=== PATIENT | female | born 1985 | race Two or more races ===

== ENCOUNTER 2021-04-28 16:59 | Inpatient (IN) | payer OTHER ==
[~2021-04-28] VITALS: Ht 165.1 cm; Wt 60.5 kg
[2021-04-28] MEDS ORDERED: ADDE20TA PO (18:45)
[2021-04-28] MEDS ORDERED: cefTRIAXone SOD 2 GM in D5W MINI-BAG PLUS 50 ML IV ONE (18:45)
[2021-04-28] MEDS ORDERED: SERT50TA29 PO (18:45)
[2021-04-28] MEDS ORDERED: HOME MED LIST COMPLETE! XX SCH (18:50)
[2021-04-28 20:04] LABS: BASO % 0.7 % (0.0-1.0); EOS % 0.7 % (0.0-3.0); HEMATOCRIT 32.2 % (36.0-47.0); HEMOGLOBIN 10.7 g/dl (12.0-15.5); LYMPH % 22.5 % (24.0-44.0); MEAN CORPUSCULAR HEMOGLOBIN 29.5 pg (27.0-33.0); MEAN CORPUSCULAR HGB CONC 33.2 g/dl (32.0-36.5); MEAN CORPUSCULAR VOLUME 88.7 fl (80.0-96.0); MONO # 0.4 10^3/uL (0.0-0.8); MONO % 9.7 % (2.0-8.0); NEUTROPHILS % 66.2 % (36.0-66.0); PLATELET COUNT, AUTOMATED 451 10^3/uL (150-450); RED BLOOD COUNT 3.63 10^6/uL (4.00-5.40); WHITE BLOOD COUNT 4.5 10^3/uL (4.0-10.0)
[2021-04-28 20:16] LABS: INR 0.98; PROTHROMBIN TIME 13.4 SECONDS (12.7-14.5)
[2021-04-28 20:40] LABS: ALBUMIN 2.5 GM/DL (3.2-5.2); ALT/SGPT 52 U/L (12-78); BILIRUBIN,DIRECT 0.1 MG/DL (0.0-0.2); BILIRUBIN,TOTAL 0.1 MG/DL (0.2-1.0); BLOOD UREA NITROGEN 17 MG/DL (7-18); CALCIUM LEVEL 8.3 MG/DL (8.5-10.1); CARBON DIOXIDE LEVEL 25 MEQ/L (21-32); CHLORIDE LEVEL 107 MEQ/L (98-107); CREATININE FOR GFR 0.47 MG/DL (0.55-1.30); GLOMERULAR FILTRATION RATE > 60.0 (>60); GLUCOSE, FASTING 88 MG/DL (70-100); POTASSIUM SERUM 4.2 MEQ/L (3.5-5.1); SODIUM LEVEL 139 MEQ/L (136-145)
[2021-04-28] MEDS ORDERED: ACETAMINOPHEN TAB 650MG DOSE (2X325MG) PO PRN (21:10)
[2021-04-28] MEDS ORDERED: MOM 30ML SUSPENSION UDC PO PRN (21:10)
[2021-04-28] MEDS ORDERED: MAALOX 30 ML SUSP *UDC PO PRN (21:10)
[2021-04-28] MEDS: SERTRALINE HCL 25 MG TABLET PO SCH (21:47)
[2021-04-29] VITALS (24 sets, daily range): BP systolic 67–97; BP diastolic 41–62
[2021-04-29 05:12] LABS: BASO % 0.9 % (0.0-1.0); EOS # 0.1 10^3/uL (0.0-0.5); EOS % 1.2 % (0.0-3.0); HEMATOCRIT 33.5 % (36.0-47.0); HEMOGLOBIN 10.9 g/dl (12.0-15.5); LYMPH # 0.8 10^3/uL (1.5-5.0); LYMPH % 18.5 % (24.0-44.0); MEAN CORPUSCULAR HEMOGLOBIN 29.1 pg (27.0-33.0); MEAN CORPUSCULAR HGB CONC 32.5 g/dl (32.0-36.5); MEAN CORPUSCULAR VOLUME 89.6 fl (80.0-96.0); MONO # 0.5 10^3/uL (0.0-0.8); MONO % 12.4 % (2.0-8.0); NEUTROPHILS # 2.9 10^3/uL (1.5-8.5); NEUTROPHILS % 66.8 % (36.0-66.0); PLATELET COUNT, AUTOMATED 473 10^3/uL (150-450); RED BLOOD COUNT 3.74 10^6/uL (4.00-5.40); WHITE BLOOD COUNT 4.3 10^3/uL (4.0-10.0)
[2021-04-29 05:34] LABS: ALBUMIN 2.4 GM/DL (3.2-5.2); ALT/SGPT 46 U/L (12-78); BILIRUBIN,TOTAL 0.1 MG/DL (0.2-1.0); BLOOD UREA NITROGEN 11 MG/DL (7-18); CALCIUM LEVEL 8.4 MG/DL (8.5-10.1); CARBON DIOXIDE LEVEL 29 MEQ/L (21-32); CHLORIDE LEVEL 108 MEQ/L (98-107); CREATININE FOR GFR 0.53 MG/DL (0.55-1.30); GLOMERULAR FILTRATION RATE > 60.0 (>60); GLUCOSE, FASTING 98 MG/DL (70-100); MAGNESIUM LEVEL 2.1 MG/DL (1.8-2.4); POTASSIUM SERUM 4.5 MEQ/L (3.5-5.1); SODIUM LEVEL 142 MEQ/L (136-145); TOTAL PROTEIN 5.8 GM/DL (6.4-8.2)
[2021-04-29] MEDS ORDERED: LIDOCAINE 1% MDV 20ML VIAL As Ordered ONE (09:55)
[2021-04-29 11:32] LABS: PH BODY FLUID 7.607 UNITS (NOT ESTABLISHED); SOURCE, BODY FLUID pH PLEURAL
[2021-04-29 11:39] LABS: LDH LACTATE DEHYDROGENASE 231 U/L (84-246); NT-PRO BNP 115 PG/ML (<125)
[2021-04-29 11:43] LABS: APPEARANCE, BODY FLUID HAZY (CLEAR); PLEURAL FL COLOR YELLOW (COLORLESS); SOURCE, BODY FLUID PLEURAL
[2021-04-29] MEDS: NS 1,000 ML IV SCH ×2 (12:11→22:00)
[2021-04-29] MEDS: HEPARIN SOD (PORCINE) 5000UNITS/ML 1ML VIAL/SYRINGE SQ SCH ×2 (12:11→20:05)
[2021-04-29 12:31] LABS: LDH, BODY FLUID 289 U/L (NOT ESTABLISHED); SOURCE, BODY FLUID ALBUMIN PLEURAL; SOURCE, BODY FLUID GLUCOSE PLEURAL; SOURCE, BODY FLUID LDH PLEURAL; SOURCE, BODY FLUID TOT PROTEIN PLEURAL; TOTAL PROTEIN, BODY FLUID 3.7 G/DL (NOT ESTABLISHED)
[2021-04-29] MEDS ORDERED: ADDERALL 5 MG TAB PO ONE (16:00)
[2021-04-29] MEDS: SERTRALINE HCL 25 MG TABLET PO SCH (20:03)
[2021-04-30] VITALS: BP 95/58
[2021-04-30] MEDS: NS 1,000 ML IV SCH (00:11)
[2021-04-30 02:00] VITALS: BP 95/58
[2021-04-30 04:00] VITALS: BP 95/56
[2021-04-30 04:44] LABS: HEMATOCRIT 33.2 % (36.0-47.0); HEMOGLOBIN 10.8 g/dl (12.0-15.5); MEAN CORPUSCULAR HEMOGLOBIN 29.3 pg (27.0-33.0); MEAN CORPUSCULAR HGB CONC 32.5 g/dl (32.0-36.5); PLATELET COUNT, AUTOMATED 445 10^3/uL (150-450); RED BLOOD COUNT 3.69 10^6/uL (4.00-5.40); WHITE BLOOD COUNT 4.4 10^3/uL (4.0-10.0)
[2021-04-30 05:09] LABS: BLOOD UREA NITROGEN 14 MG/DL (7-18); CALCIUM LEVEL 8.3 MG/DL (8.5-10.1); CARBON DIOXIDE LEVEL 26 MEQ/L (21-32); CHLORIDE LEVEL 111 MEQ/L (98-107); CREATININE FOR GFR 0.45 MG/DL (0.55-1.30); GLOMERULAR FILTRATION RATE > 60.0 (>60); GLUCOSE, FASTING 98 MG/DL (70-100); POTASSIUM SERUM 4.2 MEQ/L (3.5-5.1); SODIUM LEVEL 142 MEQ/L (136-145)
== END 2021-04-30 08:36 | disposition home or self-care (01) | DRG 598 ==
LOC: M ED 16:59 → M ED INP 21:07 → M ICU 04-29 04:17
PROVIDERS: ADMIT Family Medicine; ATTEND Internal Medicine
PROC: 0W993ZZ Drainage of Right Pleural Cavity, Percutaneous Approach (ICD-10-PCS; principal; 2021-04-29)
DX: C50.911 Malignant neoplasm of unspecified site of right female breast (principal); J91.0 Malignant pleural effusion; C78.7 Secondary malignant neoplasm of liver and intrahepatic bile duct; Z90.13 Acquired absence of bilateral breasts and nipples; F32.A Depression, unspecified; Z79.899 Other long term (current) drug therapy; Z88.0 Allergy status to penicillin; Z92.3 Personal history of irradiation; Z92.21 Personal history of antineoplastic chemotherapy; Z80.3 Family history of malignant neoplasm of breast; Z86.16 Personal history of COVID-19

== ENCOUNTER → 2021-05-15 | Outpatient (CLI) | payer OTHER ==
[~2021-05-15] MED LIST: ACETAMINOPHEN 325 MG TAB As Ordered ONE; ACETAMINOPHEN TAB 650MG DOSE (2X325MG) PO ONE; ADDE20TA PO; IRON15CH PO; LIDOCAINE 1% MDV 20ML VIAL As Ordered ONE; MIDAZOLAM INJ 2MG/2ML VIAL (J2250 PER 1MG) As Ordered ONE; ONDANSETRON 4MG/2ML VIAL As Ordered ONE; SERT50TA29 PO; TAMO20TA8 PO; VANCOMYCIN 1000MG/20ML VIAL As Ordered ONE; diphenhydrAMINE 50MG/ML VIAL (J1200) As Ordered ONE; fentaNYL 100 MCG/2 ML INJECTION (J3010) As Ordered ONE
[2021-05-15] MEDS: NS 1,000 ML IV SCH (08:02)
[2021-05-15] MEDS: VANCOMYCIN HCL 1,000 MG, VIAL MATE ADAPTER 1 EACH in NS 250 ML IV ONE (08:02)
[2021-05-15 11:15] VITALS: BP 98/65
== END ==
LOC: M IRPRO 06:15
PROVIDERS: ATTEND Internal Medicine Hematology & Oncology
DX: C50.911 Malignant neoplasm of unspecified site of right female breast (principal); Z88.0 Allergy status to penicillin
CPT/HCPCS: 36561; 99152; 99153; C1769; C1788; C1894; J1200; J1642; J1644; J2250; J2405; J3010; J3370

== ENCOUNTER → 2021-05-30 | Outpatient (POV) | payer OTHER ==
[~2021-05-30] VITALS: Ht 165.1 cm; Wt 59.1 kg
[~2021-05-30] MED LIST changes: -ACETAMINOPHEN 325 MG TAB As Ordered ONE; -ACETAMINOPHEN TAB 650MG DOSE (2X325MG) PO ONE; -LIDOCAINE 1% MDV 20ML VIAL As Ordered ONE; -MIDAZOLAM INJ 2MG/2ML VIAL (J2250 PER 1MG) As Ordered ONE; -ONDANSETRON 4MG/2ML VIAL As Ordered ONE; -VANCOMYCIN 1000MG/20ML VIAL As Ordered ONE; -diphenhydrAMINE 50MG/ML VIAL (J1200) As Ordered ONE; -fentaNYL 100 MCG/2 ML INJECTION (J3010) As Ordered ONE
[2021-05-30 12:35] VITALS: BP 112/68
== END ==
LOC: M IRPOV 12:17
PROVIDERS: ATTEND Radiology Diagnostic Radiology
DX: Z45.2 Encounter for adjustment and management of vascular access device (principal)

== ENCOUNTER 2021-06-16 06:37 | Emergency (ER) | payer OTHER ==
[~2021-06-16] VITALS: Ht 165.1 cm; Wt 59.1 kg
[2021-06-16] MEDS ORDERED: HYDR-4571 PO (06:49)
[2021-06-16] MEDS ORDERED: NS 500 ML IV ONE (07:40)
[2021-06-16 08:13] LABS: BASO # 0.1 10^3/uL (0.0-0.2); BASO % 1.1 % (0.0-1.0); EOS % 0.4 % (0.0-3.0); HEMATOCRIT 34.9 % (36.0-47.0); HEMOGLOBIN 11.7 g/dl (12.0-15.5); LYMPH # 0.8 10^3/uL (1.5-5.0); LYMPH % 13.8 % (24.0-44.0); MEAN CORPUSCULAR HGB CONC 33.5 g/dl (32.0-36.5); MEAN CORPUSCULAR VOLUME 86.6 fl (80.0-96.0); MONO # 0.5 10^3/uL (0.0-0.8); NEUTROPHILS # 4.1 10^3/uL (1.5-8.5); NEUTROPHILS % 75.3 % (36.0-66.0); PLATELET COUNT, AUTOMATED 427 10^3/uL (150-450); RED BLOOD COUNT 4.03 10^6/uL (4.00-5.40); WHITE BLOOD COUNT 5.4 10^3/uL (4.0-10.0)
[2021-06-16 08:32] LABS: ERYTHROCYTE SEDIMENTATION RATE 69 mm/hr (0-20)
[2021-06-16 08:44] LABS: ALBUMIN 1.9 GM/DL (3.2-5.2); BILIRUBIN,DIRECT 0.1 MG/DL (0.0-0.2); BILIRUBIN,TOTAL 0.4 MG/DL (0.2-1.0); C REACTIVE PROTEIN QUANTITATIV 7.66 MG/DL (0.00-0.30); TOTAL PROTEIN 5.7 GM/DL (6.4-8.2)
[2021-06-16 08:56] LABS: CK-MB VALUE MASS < 1.0 NG/ML (<3.6); CPK CREATINE PHOSPHOKINASE 61 U/L (26-192); MB/CK RELATIVE INDEX 1.64 (< OR =4)
[2021-06-16 12:45] VITALS: BP 101/58
[2021-06-22] MEDS ORDERED: KISQ1PAK3 PO (12:50)
== END 2021-06-16 13:26 | disposition home or self-care (01) ==
LOC: M ED 06:37
DX: C50.911 Malignant neoplasm of unspecified site of right female breast (principal); J91.8 Pleural effusion in other conditions classified elsewhere; Z88.0 Allergy status to penicillin; Z90.13 Acquired absence of bilateral breasts and nipples

== ENCOUNTER → 2021-06-23 | Outpatient (CLI) | payer OTHER ==
[~2021-06-23] MED LIST changes: +HYDR-4571 PO; +KISQ1PAK3 PO
[2021-06-23 13:45] VITALS: BP 102/70
== END ==
LOC: M IRPRO 10:33
PROVIDERS: ATTEND Nurse Practitioner Family
DX: J90 Pleural effusion, not elsewhere classified (principal)

== ENCOUNTER → 2021-07-21 | Outpatient (CLI) | payer OTHER ==
[2021-07-21 13:02] LABS: BASO # 0.1 10^3/uL (0.0-0.2); BASO % 3.8 % (0.0-1.0); EOS # 0.1 10^3/uL (0.0-0.5); EOS % 2.1 % (0.0-3.0); HEMATOCRIT 36.3 % (36.0-47.0); HEMOGLOBIN 11.8 g/dl (12.0-15.5); LYMPH % 30.1 % (24.0-44.0); MEAN CORPUSCULAR HEMOGLOBIN 28.2 pg (27.0-33.0); MEAN CORPUSCULAR HGB CONC 32.5 g/dl (32.0-36.5); MEAN CORPUSCULAR VOLUME 86.8 fl (80.0-96.0); MONO # 0.3 10^3/uL (0.0-0.8); MONO % 9.4 % (2.0-8.0); NEUTROPHILS # 1.8 10^3/uL (1.5-8.5); PLATELET COUNT, AUTOMATED 455 10^3/uL (150-450); RED BLOOD COUNT 4.18 10^6/uL (4.00-5.40); WHITE BLOOD COUNT 3.4 10^3/uL (4.0-10.0)
== END ==
LOC: M LAB 11:16
PROVIDERS: ATTEND Nurse Practitioner Family
DX: C50.811 Malignant neoplasm of overlapping sites of right female breast (principal); Z17.0 Estrogen receptor positive status [ER+]

== ENCOUNTER → 2021-07-28 | Outpatient (CLI) | payer OTHER ==
[2021-07-28 10:52] LABS: BASO # 0.1 10^3/uL (0.0-0.2); BASO % 2.1 % (0.0-1.0); EOS # 0.1 10^3/uL (0.0-0.5); EOS % 2.3 % (0.0-3.0); HEMATOCRIT 37.7 % (36.0-47.0); HEMOGLOBIN 12.4 g/dl (12.0-15.5); LYMPH % 22.1 % (24.0-44.0); MEAN CORPUSCULAR HEMOGLOBIN 28.7 pg (27.0-33.0); MEAN CORPUSCULAR HGB CONC 32.9 g/dl (32.0-36.5); MEAN CORPUSCULAR VOLUME 87.3 fl (80.0-96.0); MONO # 0.3 10^3/uL (0.0-0.8); MONO % 7.2 % (2.0-8.0); NEUTROPHILS # 2.8 10^3/uL (1.5-8.5); NEUTROPHILS % 66.1 % (36.0-66.0); PLATELET COUNT, AUTOMATED 368 10^3/uL (150-450); RED BLOOD COUNT 4.32 10^6/uL (4.00-5.40); WHITE BLOOD COUNT 4.3 10^3/uL (4.0-10.0)
== END ==
LOC: M LAB 09:54
PROVIDERS: ATTEND Nurse Practitioner Family
DX: C50.811 Malignant neoplasm of overlapping sites of right female breast (principal); Z17.0 Estrogen receptor positive status [ER+]

== ENCOUNTER 2021-07-31 14:24 | Emergency (ER) | payer OTHER ==
[~2021-07-31] VITALS: Ht 165.1 cm; Wt 56.8 kg
[2021-07-31 16:55] LABS: BASO # 0.1 10^3/uL (0.0-0.2); BASO % 1.9 % (0.0-1.0); EOS # 0.1 10^3/uL (0.0-0.5); EOS % 1.5 % (0.0-3.0); HEMOGLOBIN 12.2 g/dl (12.0-15.5); LYMPH # 0.8 10^3/uL (1.5-5.0); LYMPH % 16.3 % (24.0-44.0); MEAN CORPUSCULAR HEMOGLOBIN 28.6 pg (27.0-33.0); MEAN CORPUSCULAR VOLUME 86.9 fl (80.0-96.0); MONO # 0.4 10^3/uL (0.0-0.8); MONO % 7.7 % (2.0-8.0); NEUTROPHILS # 3.5 10^3/uL (1.5-8.5); NEUTROPHILS % 72.4 % (36.0-66.0); PLATELET COUNT, AUTOMATED 321 10^3/uL (150-450); RED BLOOD COUNT 4.26 10^6/uL (4.00-5.40); WHITE BLOOD COUNT 4.8 10^3/uL (4.0-10.0)
[2021-07-31] MEDS ORDERED: NS 1,000 ML IV ONE (17:20)
[2021-07-31 17:23] LABS: HCG, SERUM QUALITATIVE NEGATIVE (NEGATIVE)
[2021-07-31 17:32] LABS: FREE T4 0.94 NG/DL (0.76-1.46); MAGNESIUM LEVEL 2.2 MG/DL (1.8-2.4)
[2021-07-31 20:04] VITALS: BP 109/69
== END 2021-07-31 20:13 | disposition home or self-care (01) ==
LOC: M ED 14:24
DX: R55 Syncope and collapse (principal); I95.9 Hypotension, unspecified; C79.51 Secondary malignant neoplasm of bone; F33.9 Major depressive disorder, recurrent, unspecified; Z79.899 Other long term (current) drug therapy; Z88.0 Allergy status to penicillin; Z85.3 Personal history of malignant neoplasm of breast; Z87.09 Personal history of other diseases of the respiratory system; Z90.13 Acquired absence of bilateral breasts and nipples; Z92.21 Personal history of antineoplastic chemotherapy; Z87.891 Personal history of nicotine dependence

== ENCOUNTER → 2021-08-11 | Outpatient (CLI) | payer OTHER ==
[2021-08-11 11:13] LABS: BASO # 0.1 10^3/uL (0.0-0.2); BASO % 2.8 % (0.0-1.0); EOS # 0.1 10^3/uL (0.0-0.5); HEMATOCRIT 39.6 % (36.0-47.0); HEMOGLOBIN 12.8 g/dl (12.0-15.5); LYMPH # 0.7 10^3/uL (1.5-5.0); LYMPH % 17.1 % (24.0-44.0); MEAN CORPUSCULAR HEMOGLOBIN 28.6 pg (27.0-33.0); MEAN CORPUSCULAR HGB CONC 32.3 g/dl (32.0-36.5); MEAN CORPUSCULAR VOLUME 88.4 fl (80.0-96.0); MONO # 0.3 10^3/uL (0.0-0.8); MONO % 7.7 % (2.0-8.0); NEUTROPHILS % 69.2 % (36.0-66.0); PLATELET COUNT, AUTOMATED 367 10^3/uL (150-450); RED BLOOD COUNT 4.48 10^6/uL (4.00-5.40); WHITE BLOOD COUNT 4.3 10^3/uL (4.0-10.0)
== END ==
LOC: M LAB 10:40
PROVIDERS: ATTEND Nurse Practitioner Family
DX: C50.811 Malignant neoplasm of overlapping sites of right female breast (principal); Z17.0 Estrogen receptor positive status [ER+]

== ENCOUNTER 2021-08-24 13:16 | Outpatient (CLI) | payer OTHER ==
[~2021-08-24] VITALS: Ht 167.6 cm; Wt 57.0 kg
[~2021-08-24 13:16] MED LIST changes: +SODIUM CHLORIDE 0.9% INJ 10 ML SYR IV SCH
[2021-08-24 13:20] VITALS: BP 108/70
== END 2021-08-24 13:45 | disposition home or self-care (01) ==
LOC: M INFU 13:16
PROVIDERS: ATTEND Radiology Diagnostic Radiology
DX: C50.811 Malignant neoplasm of overlapping sites of right female breast (principal); Z88.0 Allergy status to penicillin
CPT/HCPCS: 96523; J1642

== ENCOUNTER → 2021-09-19 | Outpatient (CLI) | payer OTHER ==
[~2021-09-19] MED LIST changes: -SODIUM CHLORIDE 0.9% INJ 10 ML SYR IV SCH
== END ==
LOC: M PLARAD 15:08
PROVIDERS: ATTEND Internal Medicine Hematology & Oncology
DX: C50.811 Malignant neoplasm of overlapping sites of right female breast (principal)

== ENCOUNTER → 2021-10-12 | Outpatient (CLI) | payer OTHER | LOC: M RAD 13:07 | PROVIDERS: ATTEND Nurse Practitioner Family | DX: J90 Pleural effusion, not elsewhere classified (principal) ==

== ENCOUNTER → 2021-10-18 | Outpatient (CLI) | payer OTHER | LOC: M RAD 12:28 | PROVIDERS: ATTEND Nurse Practitioner Family | DX: J90 Pleural effusion, not elsewhere classified (principal) ==

== ENCOUNTER 2021-10-23 10:33 | Emergency (ER) | payer OTHER ==
[~2021-10-23] VITALS: Ht 165.1 cm; Wt 59.1 kg
[2021-10-23] MEDS ORDERED: LYNP100T (11:13)
[2021-10-23] MEDS ORDERED: HYDR-4517 (11:13)
[2021-10-23] MEDS ORDERED: ONDANSETRON 4MG 2ML VIAL IV ONE (11:40)
[2021-10-23] MEDS ORDERED: MORPHINE 4 MG/ML 1ML VIAL/SYRINGE IV PRN (11:40)
[2021-10-23 12:14] LABS: BASO # 0.1 10^3/uL (0.0-0.2); BASO % 1.9 % (0.0-1.0); EOS # 0.1 10^3/uL (0.0-0.5); EOS % 1.3 % (0.0-3.0); HEMATOCRIT 36.9 % (36.0-47.0); HEMOGLOBIN 11.9 g/dl (12.0-15.5); LYMPH # 0.7 10^3/uL (1.5-5.0); LYMPH % 12.4 % (24.0-44.0); MEAN CORPUSCULAR HEMOGLOBIN 28.7 pg (27.0-33.0); MEAN CORPUSCULAR HGB CONC 32.2 g/dl (32.0-36.5); MEAN CORPUSCULAR VOLUME 88.9 fl (80.0-96.0); MONO # 0.4 10^3/uL (0.0-0.8); MONO % 7.6 % (2.0-8.0); NEUTROPHILS % 76.4 % (36.0-66.0); PLATELET COUNT, AUTOMATED 420 10^3/uL (150-450); RED BLOOD COUNT 4.15 10^6/uL (4.00-5.40); WHITE BLOOD COUNT 5.2 10^3/uL (4.0-10.0)
[2021-10-23] MEDS ORDERED: ISOVUE-370 76% 100ML VIAL As Ordered ONE (12:26)
[2021-10-23 12:36] LABS: ALBUMIN 3.2 GM/DL (3.2-5.2); ALT/SGPT 25 U/L (12-78); BILIRUBIN,DIRECT < 0.1 MG/DL (0.0-0.2); BILIRUBIN,TOTAL 0.3 MG/DL (0.2-1.0); LIPASE 120 U/L (73-393); TOTAL PROTEIN 7.2 GM/DL (6.4-8.2)
[2021-10-23 14:22] VITALS: BP 119/69
[2021-10-26] MEDS ORDERED: MORP-69 (08:41)
== END 2021-10-23 14:32 | disposition home or self-care (01) ==
LOC: M ED 10:33
DX: R21 Rash and other nonspecific skin eruption (principal); M79.81 Nontraumatic hematoma of soft tissue; R93.3 Abnormal findings on diagnostic imaging of other parts of digestive tract; R93.5 Abnormal findings on diagnostic imaging of other abdominal regions, including retroperitoneum; R93.2 Abnormal findings on diagnostic imaging of liver and biliary tract; R18.8 Other ascites; C50.919 Malignant neoplasm of unspecified site of unspecified female breast; C79.51 Secondary malignant neoplasm of bone; J90 Pleural effusion, not elsewhere classified; Z79.811 Long term (current) use of aromatase inhibitors; Z88.0 Allergy status to penicillin
CPT/HCPCS: 74177; 80047; 80076; 83690; 84702; 85025; 93041; 96374; 96375; 99284; J2270; J2405; Q9967

== ENCOUNTER 2021-11-13 13:07 | Emergency (ER) | payer OTHER ==
[~2021-11-13] VITALS: Ht 165.1 cm; Wt 59.2 kg
[~2021-11-13 13:07] MED LIST changes: +HYDR-4517; +LYNP100T; +MORP-69
[2021-11-13 14:43] LABS: BASO # 0.1 10^3/uL (0.0-0.2); BASO % 1.4 % (0.0-1.0); EOS # 0.1 10^3/uL (0.0-0.5); EOS % 2.1 % (0.0-3.0); HEMATOCRIT 38.2 % (36.0-47.0); HEMOGLOBIN 12.3 g/dl (12.0-15.5); LYMPH # 0.8 10^3/uL (1.5-5.0); LYMPH % 19.1 % (24.0-44.0); MEAN CORPUSCULAR HEMOGLOBIN 28.7 pg (27.0-33.0); MEAN CORPUSCULAR HGB CONC 32.2 g/dl (32.0-36.5); MEAN CORPUSCULAR VOLUME 89.3 fl (80.0-96.0); MONO # 0.4 10^3/uL (0.0-0.8); MONO % 9.3 % (2.0-8.0); NEUTROPHILS # 2.9 10^3/uL (1.5-8.5); NEUTROPHILS % 67.9 % (36.0-66.0); PLATELET COUNT, AUTOMATED 429 10^3/uL (150-450); RED BLOOD COUNT 4.28 10^6/uL (4.00-5.40); WHITE BLOOD COUNT 4.3 10^3/uL (4.0-10.0)
[2021-11-13 15:20] LABS: CK-MB VALUE MASS < 1.0 NG/ML (<3.6); CPK CREATINE PHOSPHOKINASE 143 U/L (26-192)
[2021-11-13] MEDS ORDERED: LIDOCAINE 1% SDV 30ML VIAL SC SCH (17:05)
[2021-11-13 17:28] LABS: ALT/SGPT 28 IU/L (0-32); BLOOD UREA NITROGEN 12 MG/DL (7-18); CALCIUM LEVEL 8.8 MG/DL (8.5-10.1); CARBON DIOXIDE LEVEL 25 mmol/L (20-29); CHLORIDE LEVEL 104 MEQ/L (98-107); CREATININE FOR GFR 0.79 MG/DL (0.55-1.30); GLOMERULAR FILTRATION RATE > 60.0 (>60); GLUCOSE, FASTING 87 MG/DL (70-100); POTASSIUM SERUM 4.3 MEQ/L (3.5-5.1); SODIUM LEVEL 136 MEQ/L (136-145)
[2021-11-13 17:29] LABS: ALBUMIN 2.8 GM/DL (3.2-5.2); BILIRUBIN,DIRECT 0.1 MG/DL (0.0-0.2); BILIRUBIN,TOTAL 0.4 MG/DL (0.2-1.0); NT-PRO BNP 169 PG/ML (<125); THYROXINE (T4) 9.4 UG/DL (4.5-12.0); TOTAL PROTEIN 6.7 GM/DL (6.4-8.2)
[2021-11-13 18:30] VITALS: BP 100/62
[2021-11-13 18:33] LABS: PLEURAL FL COLOR PALE YELLOW (COLORLESS); SOURCE, BODY FLUID PLEURAL
[2021-11-13 18:34] LABS: APPEARANCE, BODY FLUID CLEAR (CLEAR)
[2021-11-13 19:51] LABS: LDH, BODY FLUID 210 U/L (NOT ESTABLISHED); SOURCE, BODY FLUID GLUCOSE PLEURAL; SOURCE, BODY FLUID LDH PLEURAL; SOURCE, BODY FLUID TOT PROTEIN PLEURAL; TOTAL PROTEIN, BODY FLUID 3.3 G/DL (NOT ESTABLISHED)
== END 2021-11-13 18:44 | disposition home or self-care (01) ==
LOC: M ED 13:07
DX: C41.9 Malignant neoplasm of bone and articular cartilage, unspecified (principal); J91.0 Malignant pleural effusion; Z88.0 Allergy status to penicillin; Z87.891 Personal history of nicotine dependence; Z79.899 Other long term (current) drug therapy

== ENCOUNTER → 2021-11-28 | Outpatient (CLI) | payer OTHER ==
[~2021-11-28] MED LIST changes: +BUPR75TA5 PO; -HYDR-4517; +HYDR-4517 PO; +LEVO1TAB40 PO; -LYNP100T; +LYNP100T PO; +MORP-69 PO
[2021-11-28 10:20] VITALS: BP 96/57
== END ==
LOC: M IRPRO 07:21
PROVIDERS: ATTEND Nurse Practitioner Family
DX: C50.919 Malignant neoplasm of unspecified site of unspecified female breast (principal); J91.0 Malignant pleural effusion

== ENCOUNTER 2021-12-02 21:26 | Inpatient (IN) | payer OTHER ==
[~2021-12-02] VITALS: Ht 165.1 cm; Wt 57.0 kg
[~2021-12-02 21:26] MED LIST changes: +DEXA4TA PO; +NARC1SPR NARES; +ONDA-83 PO; +OXYC-517 PO; +OXYC20TA40 PO; +RAME8TAB2 PO; +SENN-52 PO
[2021-12-03 04:23] LABS: BASO % 0.3 % (0.0-1.0); EOS # 0.2 10^3/uL (0.0-0.5); HEMATOCRIT 29.9 % (36.0-47.0); HEMOGLOBIN 9.9 g/dl (12.0-15.5); LYMPH # 0.3 10^3/uL (1.5-5.0); MEAN CORPUSCULAR HEMOGLOBIN 28.8 pg (27.0-33.0); MEAN CORPUSCULAR HGB CONC 33.1 g/dl (32.0-36.5); MEAN CORPUSCULAR VOLUME 86.9 fl (80.0-96.0); MONO # 0.5 10^3/uL (0.0-0.8); NEUTROPHILS # 5.2 10^3/uL (1.5-8.5); NEUTROPHILS % 83.1 % (36.0-66.0); PLATELET COUNT, AUTOMATED 389 10^3/uL (150-450); RED BLOOD COUNT 3.44 10^6/uL (4.00-5.40); WHITE BLOOD COUNT 6.3 10^3/uL (4.0-10.0)
[2021-12-03 05:01] LABS: HCG, SERUM QUALITATIVE NEGATIVE (NEGATIVE)
[2021-12-03 05:05] LABS: BLOOD UREA NITROGEN 19 MG/DL (7-18); CALCIUM LEVEL 8.7 MG/DL (8.5-10.1); CARBON DIOXIDE LEVEL 24 MEQ/L (21-32); CHLORIDE LEVEL 101 MEQ/L (98-107); CK-MB VALUE MASS < 1.0 NG/ML (<3.6); CPK CREATINE PHOSPHOKINASE 303 U/L (26-192); CREATININE FOR GFR 0.43 MG/DL (0.55-1.30); GLOMERULAR FILTRATION RATE > 60.0 (>60); GLUCOSE, FASTING 105 MG/DL (70-100); MB/CK RELATIVE INDEX 0.33 (< OR =4); POTASSIUM SERUM 5.4 MEQ/L (3.5-5.1); SODIUM LEVEL 131 MEQ/L (136-145); THYROID STIMULATING HORMONE 0.379 uIU/ML (0.358-3.740)
[2021-12-03] MEDS ORDERED: ONDANSETRON 4MG 2ML VIAL IV ONE (05:20)
[2021-12-03] MEDS: HYDROMORPHONE HCL 0.5 MG/ 0.5 ML SYRINGE (J1170 PER 1) IV PRN ×5 (05:30→23:54)
[2021-12-03 06:20] LABS: RSV AMPLIFICATION NEGATIVE (NEGATIVE)
[2021-12-03] MEDS ORDERED: HYDR-4517 PO (08:38)
[2021-12-03] MEDS ORDERED: HOME MED LIST COMPLETE! XX SCH (08:40)
[2021-12-03] MEDS ORDERED: ACETAMINOPHEN TAB 650MG DOSE (2X325MG) PO PRN (10:05)
[2021-12-03] MEDS ORDERED: dexameTHASONE 20MG/5ML VIAL (J1100 PER 1MG) IV ONE (11:00)
[2021-12-03] MEDS ORDERED: NALOXONE 2MG/2ML SYRINGE (J2310 PER 1MG) IV PRN (11:35)
[2021-12-03] MEDS ORDERED: HYDROMORPHONE HCL 0.5 MG/ 0.5 ML SYRINGE (J1170 PER 1) IV ONE (12:25)
[2021-12-03] MEDS: oxyCODONE 5MG TAB PO PRN ×3 (14:00→21:02)
[2021-12-03 14:06] LABS: BLOOD UREA NITROGEN 19 MG/DL (7-18); CALCIUM LEVEL 8.3 MG/DL (8.5-10.1); CARBON DIOXIDE LEVEL 27 MEQ/L (21-32); CHLORIDE LEVEL 100 MEQ/L (98-107); CREATININE FOR GFR 0.48 MG/DL (0.55-1.30); GLOMERULAR FILTRATION RATE > 60.0 (>60); GLUCOSE, FASTING 97 MG/DL (70-100); POTASSIUM SERUM 4.1 MEQ/L (3.5-5.1); SODIUM LEVEL 134 MEQ/L (136-145)
[2021-12-03] MEDS: LIDOCAINE 5% (LIDODERM) PATCH TD SCH (15:18)
[2021-12-03] MEDS: SENOKOT S TAB PO SCH ×2 (15:50→20:27)
[2021-12-03] MEDS: oxyCODONE 20 MG CR TAB PO SCH ×3 (15:51→21:00)
[2021-12-03 16:00] VITALS: BP 108/68
[2021-12-03] MEDS: buPROPion 75 MG TAB PO SCH (16:23)
[2021-12-03] MEDS: SERTRALINE HCL 50 MG TAB PO SCH (16:23)
[2021-12-03] MEDS: ENOXAPARIN 40MG/0.4ML SYRINGE (J1650 PER 10MG) SC SCH (16:24)
[2021-12-03] MEDS: NS 1,000 ML IV SCH (16:24)
[2021-12-03] MEDS: ONDANSETRON 4MG 2ML VIAL IV PRN (19:12)
[2021-12-03] MEDS: RAMELTEON 8 MG TAB (ROZEREM) PO SCH (20:24)
[2021-12-03] MEDS: dexameTHASONE 4 MG/ML 1ML VIAL (J1100 PER 1MG) IV SCH (20:24)
[2021-12-03] MEDS: **NOTE PATIENT COMMENT** MISC XX SCH (20:28)
[2021-12-03] MEDS ORDERED: oxyCODONE 20 MG CR TAB PO SCH (21:00)
[2021-12-03 21:06] VITALS: BP 107/69
[2021-12-04 02:00] VITALS: BP 106/69
[2021-12-04] MEDS: ONDANSETRON 4MG 2ML VIAL IV PRN ×3 (03:26→20:49)
[2021-12-04] MEDS: HYDROMORPHONE HCL 0.5 MG/ 0.5 ML SYRINGE (J1170 PER 1) IV PRN ×4 (03:59→17:33)
[2021-12-04] MEDS: oxyCODONE 5MG TAB PO PRN ×4 (04:36→21:42)
[2021-12-04 06:00] VITALS: BP 110/70
[2021-12-04 06:35] LABS: HEMATOCRIT 29.9 % (36.0-47.0); HEMOGLOBIN 9.6 g/dl (12.0-15.5); MEAN CORPUSCULAR HEMOGLOBIN 28.3 pg (27.0-33.0); MEAN CORPUSCULAR HGB CONC 32.1 g/dl (32.0-36.5); MEAN CORPUSCULAR VOLUME 88.2 fl (80.0-96.0); PLATELET COUNT, AUTOMATED 503 10^3/uL (150-450); RED BLOOD COUNT 3.39 10^6/uL (4.00-5.40); WHITE BLOOD COUNT 7.4 10^3/uL (4.0-10.0)
[2021-12-04 07:22] LABS: ALBUMIN 2.1 GM/DL (3.2-5.2); ALT/SGPT 21 U/L (12-78); BILIRUBIN,TOTAL 0.3 MG/DL (0.2-1.0); BLOOD UREA NITROGEN 13 MG/DL (7-18); CARBON DIOXIDE LEVEL 26 MEQ/L (21-32); CHLORIDE LEVEL 101 MEQ/L (98-107); CREATININE FOR GFR 0.44 MG/DL (0.55-1.30); GLOMERULAR FILTRATION RATE > 60.0 (>60); GLUCOSE, FASTING 100 MG/DL (70-100); SODIUM LEVEL 133 MEQ/L (136-145); TOTAL PROTEIN 5.5 GM/DL (6.4-8.2)
[2021-12-04] MEDS: SENOKOT S TAB PO SCH ×4 (09:00→21:00)
[2021-12-04] MEDS: SERTRALINE HCL 50 MG TAB PO SCH (09:05)
[2021-12-04] MEDS: dexameTHASONE 4 MG/ML 1ML VIAL (J1100 PER 1MG) IV SCH ×2 (09:06→20:41)
[2021-12-04] MEDS: ENOXAPARIN 40MG/0.4ML SYRINGE (J1650 PER 10MG) SC SCH (09:07)
[2021-12-04] MEDS: LIDOCAINE 5% (LIDODERM) PATCH TD SCH (09:07)
[2021-12-04 10:00] VITALS: BP 111/65
[2021-12-04] MEDS: buPROPion 75 MG TAB PO SCH (10:42)
[2021-12-04] MEDS: oxyCODONE 20 MG CR TAB PO SCH ×2 (10:45→20:42)
[2021-12-04 12:08] VITALS: BP 110/72
[2021-12-04] MEDS: NS 1,000 ML IV SCH (12:36)
[2021-12-04] MEDS ORDERED: HYDROMORPHONE HCL 0.5 MG/ 0.5 ML SYRINGE (J1170 PER 1) IV ONE (19:35)
[2021-12-04] MEDS: RAMELTEON 8 MG TAB (ROZEREM) PO SCH ×2 (20:42→20:44)
[2021-12-04] MEDS: **NOTE PATIENT COMMENT** MISC XX SCH (20:43)
[2021-12-04 22:00] VITALS: BP 101/65
[2021-12-05] MEDS: HYDROMORPHONE HCL 0.5 MG/ 0.5 ML SYRINGE (J1170 PER 1) IV PRN ×4 (01:33→22:42)
[2021-12-05] MEDS: oxyCODONE 5MG TAB PO PRN (05:35)
[2021-12-05] MEDS: NS 1,000 ML IV SCH ×2 (05:36→21:25)
[2021-12-05 05:37] VITALS: BP 122/81
[2021-12-05 06:30] LABS: HEMATOCRIT 29.9 % (36.0-47.0); HEMOGLOBIN 9.4 g/dl (12.0-15.5); MEAN CORPUSCULAR HGB CONC 31.4 g/dl (32.0-36.5); PLATELET COUNT, AUTOMATED 431 10^3/uL (150-450); RED BLOOD COUNT 3.36 10^6/uL (4.00-5.40); WHITE BLOOD COUNT 5.7 10^3/uL (4.0-10.0)
[2021-12-05] MEDS ORDERED: NS 500 ML IV ONE (06:40)
[2021-12-05 07:14] LABS: ALT/SGPT 23 U/L (12-78); BILIRUBIN,TOTAL 0.3 MG/DL (0.2-1.0); BLOOD UREA NITROGEN 12 MG/DL (7-18); CALCIUM LEVEL 8.1 MG/DL (8.5-10.1); CARBON DIOXIDE LEVEL 26 MEQ/L (21-32); CHLORIDE LEVEL 102 MEQ/L (98-107); CREATININE FOR GFR 0.45 MG/DL (0.55-1.30); GLOMERULAR FILTRATION RATE > 60.0 (>60); GLUCOSE, FASTING 124 MG/DL (70-100); MAGNESIUM LEVEL 1.9 MG/DL (1.8-2.4); POTASSIUM SERUM 3.8 MEQ/L (3.5-5.1); SODIUM LEVEL 134 MEQ/L (136-145); TOTAL PROTEIN 5.5 GM/DL (6.4-8.2)
[2021-12-05] MEDS: ENOXAPARIN 40MG/0.4ML SYRINGE (J1650 PER 10MG) SC SCH (07:47)
[2021-12-05] MEDS: oxyCODONE 20 MG CR TAB PO SCH ×2 (09:00→21:00)
[2021-12-05] MEDS: buPROPion 75 MG TAB PO SCH ×2 (10:05→12:00)
[2021-12-05] MEDS: SERTRALINE HCL 50 MG TAB PO SCH (10:05)
[2021-12-05] MEDS: dexameTHASONE 4 MG/ML 1ML VIAL (J1100 PER 1MG) IV SCH ×2 (10:05→20:48)
[2021-12-05] MEDS: SENOKOT S TAB PO SCH ×2 (10:05→20:47)
[2021-12-05] MEDS ORDERED: LIDOCAINE 1% MDV 20ML VIAL As Ordered ONE (11:07)
[2021-12-05] MEDS ORDERED: SODIUM BICARBONATE 8.4% INJ 50MEQ 50 ML VIAL As Ordered ONE (11:16)
[2021-12-05 12:00] VITALS: BP 114/70
[2021-12-05 12:15] VITALS: BP 114/71
[2021-12-05] MEDS: SERTRALINE HCL 25 MG TABLET PO SCH (12:22)
[2021-12-05] MEDS: LIDOCAINE 5% (LIDODERM) PATCH TD SCH (12:22)
[2021-12-05 12:45] VITALS: BP 114/71
[2021-12-05 14:00] VITALS: BP 118/70
[2021-12-05] MEDS ORDERED: MIRALAX *UNIT DOSE* 17GM PACKET PO SCH (16:15)
[2021-12-05] MEDS: ADDERALL 5 MG TAB PO SCH (16:35)
[2021-12-05] MEDS: ONDANSETRON 4MG 2ML VIAL IV PRN (17:28)
[2021-12-05] MEDS ORDERED: diphenhydrAMINE 25MG CAP PO PRN (19:50)
[2021-12-05] MEDS ORDERED: ACETAMINOPH W/CODEINE #3 TAB UD PO PRN (19:50)
[2021-12-05] MEDS: METOCLOPRAMIDE INJ 10MG/2ML VIAL (J2765 PER 1) IV PRN (20:48)
[2021-12-05] MEDS: **NOTE PATIENT COMMENT** MISC XX SCH (21:00)
[2021-12-05 22:00] VITALS: BP 118/70
[2021-12-06] MEDS: NORCO, ANEXSIA 5/325MG TABLET (HYDROcodone/ACETAMINOPHEN) PO PRN ×4 (00:38→22:24)
[2021-12-06] MEDS ORDERED: PROMETHAZINE 25MG/ML 1ML VIAL IV ONE (01:00)
[2021-12-06] MEDS: HYDROMORPHONE HCL 0.5 MG/ 0.5 ML SYRINGE (J1170 PER 1) IV PRN ×5 (04:25→21:12)
[2021-12-06] MEDS: ONDANSETRON 4MG 2ML VIAL IV PRN ×3 (04:45→17:04)
[2021-12-06 06:00] VITALS: BP 116/70
[2021-12-06 06:21] LABS: BASO % 0.4 % (0.0-1.0); EOS % 0.2 % (0.0-3.0); HEMOGLOBIN 9.8 g/dl (12.0-15.5); LYMPH # 0.2 10^3/uL (1.5-5.0); LYMPH % 4.2 % (24.0-44.0); MEAN CORPUSCULAR HEMOGLOBIN 27.9 pg (27.0-33.0); MEAN CORPUSCULAR HGB CONC 31.6 g/dl (32.0-36.5); MEAN CORPUSCULAR VOLUME 88.3 fl (80.0-96.0); MONO # 0.5 10^3/uL (0.0-0.8); MONO % 9.5 % (2.0-8.0); PLATELET COUNT, AUTOMATED 454 10^3/uL (150-450); RED BLOOD COUNT 3.51 10^6/uL (4.00-5.40); WHITE BLOOD COUNT 4.7 10^3/uL (4.0-10.0)
[2021-12-06 06:49] LABS: ALT/SGPT 20 U/L (12-78); BILIRUBIN,TOTAL 0.3 MG/DL (0.2-1.0); BLOOD UREA NITROGEN 11 MG/DL (7-18); CALCIUM LEVEL 8.7 MG/DL (8.5-10.1); CARBON DIOXIDE LEVEL 27 MEQ/L (21-32); CHLORIDE LEVEL 101 MEQ/L (98-107); CREATININE FOR GFR 0.41 MG/DL (0.55-1.30); GLOMERULAR FILTRATION RATE > 60.0 (>60); GLUCOSE, FASTING 101 MG/DL (70-100); POTASSIUM SERUM 4.2 MEQ/L (3.5-5.1); SODIUM LEVEL 134 MEQ/L (136-145); TOTAL PROTEIN 5.7 GM/DL (6.4-8.2)
[2021-12-06] MEDS: METOCLOPRAMIDE INJ 10MG/2ML VIAL (J2765 PER 1) IV PRN (08:47)
[2021-12-06] MEDS: dexameTHASONE 4 MG/ML 1ML VIAL (J1100 PER 1MG) IV SCH ×2 (08:50→21:10)
[2021-12-06] MEDS: LIDOCAINE 5% (LIDODERM) PATCH TD SCH (08:51)
[2021-12-06] MEDS: ENOXAPARIN 40MG/0.4ML SYRINGE (J1650 PER 10MG) SC SCH (08:52)
[2021-12-06] MEDS: oxyCODONE 20 MG CR TAB PO SCH ×2 (09:00→21:00)
[2021-12-06] MEDS: DOCUSATE SODIUM 100MG CAPSULE PO SCH ×2 (09:00→21:00)
[2021-12-06] MEDS: MIRALAX *UNIT DOSE* 17GM PACKET PO SCH ×2 (09:00→21:00)
[2021-12-06] MEDS: ADDERALL 5 MG TAB PO SCH ×2 (11:18→14:00)
[2021-12-06] MEDS ORDERED: SENNA 8.6 MG TAB (SENOKOT) PO PRN (13:10)
[2021-12-06 14:00] VITALS: BP 116/70
[2021-12-06] MEDS ORDERED: BISACODYL 10 MG SUPP PR ONE (14:00)
[2021-12-06] MEDS: SERTRALINE HCL 25 MG TABLET PO SCH (18:21)
[2021-12-06] MEDS: buPROPion 75 MG TAB PO SCH (18:21)
[2021-12-06 20:00] VITALS: BP 118/71
[2021-12-06] MEDS: SENNA 8.6 MG TAB (SENOKOT) PO SCH (21:00)
[2021-12-06] MEDS: **NOTE PATIENT COMMENT** MISC XX SCH (21:00)
[2021-12-07] MEDS: HYDROMORPHONE HCL 0.5 MG/ 0.5 ML SYRINGE (J1170 PER 1) IV PRN ×4 (02:09→11:51)
[2021-12-07] MEDS: NORCO, ANEXSIA 5/325MG TABLET (HYDROcodone/ACETAMINOPHEN) PO PRN ×4 (03:12→19:00)
[2021-12-07 05:50] VITALS: BP 118/72
[2021-12-07 06:43] LABS: BASO % 0.5 % (0.0-1.0); HEMATOCRIT 31.7 % (36.0-47.0); HEMOGLOBIN 10.2 g/dl (12.0-15.5); LYMPH # 0.2 10^3/uL (1.5-5.0); LYMPH % 4.2 % (24.0-44.0); MEAN CORPUSCULAR HEMOGLOBIN 28.8 pg (27.0-33.0); MEAN CORPUSCULAR HGB CONC 32.2 g/dl (32.0-36.5); MEAN CORPUSCULAR VOLUME 89.5 fl (80.0-96.0); MONO # 0.4 10^3/uL (0.0-0.8); MONO % 10.8 % (2.0-8.0); NEUTROPHILS # 3.3 10^3/uL (1.5-8.5); PLATELET COUNT, AUTOMATED 495 10^3/uL (150-450); RED BLOOD COUNT 3.54 10^6/uL (4.00-5.40); WHITE BLOOD COUNT 4.1 10^3/uL (4.0-10.0)
[2021-12-07 07:15] LABS: ALBUMIN 2.2 GM/DL (3.2-5.2); ALT/SGPT 24 U/L (12-78); BILIRUBIN,TOTAL 0.3 MG/DL (0.2-1.0); BLOOD UREA NITROGEN 13 MG/DL (7-18); CALCIUM LEVEL 8.4 MG/DL (8.5-10.1); CARBON DIOXIDE LEVEL 27 MEQ/L (21-32); CHLORIDE LEVEL 102 MEQ/L (98-107); GLOMERULAR FILTRATION RATE > 60.0 (>60); GLUCOSE, FASTING 106 MG/DL (70-100); POTASSIUM SERUM 4.3 MEQ/L (3.5-5.1); SODIUM LEVEL 134 MEQ/L (136-145)
[2021-12-07] MEDS ORDERED: EPINEPHrine (1MG/ML) IV IM PRN (07:30)
[2021-12-07] MEDS ORDERED: FAMOTIDINE 20MG IVP IV PRN (07:30)
[2021-12-07] MEDS ORDERED: diphenhydrAMINE (50MG/ML) IV IV PRN (07:30)
[2021-12-07] MEDS ORDERED: ALBUTEROL SULFATE (2.5MG/0.5ML) NEB INH PRN (07:30)
[2021-12-07] MEDS ORDERED: NS 1,000 ML IV PRN (07:30)
[2021-12-07] MEDS ORDERED: methylPREDNISolone (125 MG/2 ML) IV IV PRN (07:30)
[2021-12-07] MEDS: ADDERALL 5 MG TAB PO SCH ×3 (08:00→15:00)
[2021-12-07] MEDS: SENNA 8.6 MG TAB (SENOKOT) PO SCH ×2 (09:00→21:00)
[2021-12-07] MEDS: MIRALAX *UNIT DOSE* 17GM PACKET PO SCH ×2 (09:00→21:00)
[2021-12-07] MEDS ORDERED: FAMOTIDINE 20 MG IVP IV ONE (09:00)
[2021-12-07] MEDS ORDERED: diphenhydrAMINE 50 MG IV IV ONE (09:00)
[2021-12-07] MEDS ORDERED: DEXAMETHASONE 4 MG ONE (09:00)
[2021-12-07] MEDS ORDERED: FOSAPREPITANT PERIPHERAL LINE 30 MIN INFUSION IV ONE ×2 (09:00)
[2021-12-07] MEDS: oxyCODONE 20 MG CR TAB PO SCH ×2 (09:00→21:00)
[2021-12-07] MEDS: DOCUSATE SODIUM 100MG CAPSULE PO SCH ×2 (09:02→21:00)
[2021-12-07] MEDS: ENOXAPARIN 40MG/0.4ML SYRINGE (J1650 PER 10MG) SC SCH (09:03)
[2021-12-07] MEDS: dexameTHASONE 4 MG/ML 1ML VIAL (J1100 PER 1MG) IV SCH ×2 (09:32→21:17)
[2021-12-07] MEDS ORDERED: [UNRECOGNIZED DRUG - OTHER] IV ONE (10:00)
[2021-12-07] MEDS ORDERED: PACLITAXEL IV ONE (10:00)
[2021-12-07 11:09] VITALS: BP 114/71
[2021-12-07] MEDS: SERTRALINE HCL 25 MG TABLET PO SCH (11:28)
[2021-12-07] MEDS: buPROPion 75 MG TAB PO SCH (11:28)
[2021-12-07] MEDS: LIDOCAINE 5% (LIDODERM) PATCH TD SCH (11:33)
[2021-12-07] MEDS ORDERED: SODIUM CHLORIDE 0.9% INJ 10 ML SYR IV PRN (12:20)
[2021-12-07 12:30] VITALS: BP 113/72
[2021-12-07] MEDS ORDERED: BISACODYL 10 MG SUPP PR ONE (17:00)
[2021-12-07] MEDS ORDERED: SENNA 8.6 MG TAB (SENOKOT) PO PRN (20:20)
[2021-12-07] MEDS ORDERED: HYDROMORPHONE HCL 0.5 MG/ 0.5 ML SYRINGE (J1170 PER 1) IV ONE (20:30)
[2021-12-07] MEDS: **NOTE PATIENT COMMENT** MISC XX SCH (21:00)
[2021-12-07 22:00] VITALS: BP 112/73
[2021-12-07] MEDS ORDERED: diphenhydrAMINE 25MG CAP PO ONE (23:00)
[2021-12-08] MEDS: NORCO, ANEXSIA 5/325MG TABLET (HYDROcodone/ACETAMINOPHEN) PO PRN ×2 (00:25→08:32)
[2021-12-08] MEDS ORDERED: MORPHINE 30 MG TAB **MSIR PO ONE ×4 (02:00→20:50)
[2021-12-08 06:00] VITALS: BP 110/73
[2021-12-08 06:39] LABS: BASO % 0.3 % (0.0-1.0); HEMATOCRIT 32.1 % (36.0-47.0); HEMOGLOBIN 10.2 g/dl (12.0-15.5); LYMPH # 0.1 10^3/uL (1.5-5.0); LYMPH % 3.3 % (24.0-44.0); MEAN CORPUSCULAR HEMOGLOBIN 27.8 pg (27.0-33.0); MEAN CORPUSCULAR HGB CONC 31.8 g/dl (32.0-36.5); MEAN CORPUSCULAR VOLUME 87.5 fl (80.0-96.0); MONO # 0.2 10^3/uL (0.0-0.8); MONO % 4.7 % (2.0-8.0); NEUTROPHILS # 3.2 10^3/uL (1.5-8.5); PLATELET COUNT, AUTOMATED 506 10^3/uL (150-450); RED BLOOD COUNT 3.67 10^6/uL (4.00-5.40); WHITE BLOOD COUNT 3.6 10^3/uL (4.0-10.0)
[2021-12-08 07:10] LABS: ALBUMIN 2.4 GM/DL (3.2-5.2); ALT/SGPT 26 U/L (12-78); BILIRUBIN,TOTAL 0.3 MG/DL (0.2-1.0); BLOOD UREA NITROGEN 8 MG/DL (7-18); CALCIUM LEVEL 8.6 MG/DL (8.5-10.1); CARBON DIOXIDE LEVEL 27 MEQ/L (21-32); CHLORIDE LEVEL 101 MEQ/L (98-107); CREATININE FOR GFR 0.43 MG/DL (0.55-1.30); GLOMERULAR FILTRATION RATE > 60.0 (>60); GLUCOSE, FASTING 114 MG/DL (70-100); POTASSIUM SERUM 4.1 MEQ/L (3.5-5.1); SODIUM LEVEL 132 MEQ/L (136-145); TOTAL PROTEIN 6.2 GM/DL (6.4-8.2)
[2021-12-08] MEDS ORDERED: SODIUM CHLORIDE 0.9% INJ 10 ML SYR IV PRN (08:00)
[2021-12-08] MEDS: ADDERALL 5 MG TAB PO SCH ×4 (08:10→15:00)
[2021-12-08] MEDS: ENOXAPARIN 40MG/0.4ML SYRINGE (J1650 PER 10MG) SC SCH (08:10)
[2021-12-08] MEDS: dexameTHASONE 4 MG/ML 1ML VIAL (J1100 PER 1MG) IV SCH (08:11)
[2021-12-08] MEDS: DOCUSATE SODIUM 100MG CAPSULE PO SCH ×2 (08:11→20:51)
[2021-12-08] MEDS: LIDOCAINE 5% (LIDODERM) PATCH TD SCH (08:11)
[2021-12-08] MEDS: SENNA 8.6 MG TAB (SENOKOT) PO SCH ×2 (08:12→21:00)
[2021-12-08] MEDS: oxyCODONE 20 MG CR TAB PO SCH ×2 (08:12→20:51)
[2021-12-08] MEDS: MIRALAX *UNIT DOSE* 17GM PACKET PO SCH ×2 (08:12→20:51)
[2021-12-08 14:00] VITALS: BP 107/79
[2021-12-08] MEDS: buPROPion 75 MG TAB PO SCH (15:23)
[2021-12-08] MEDS: SERTRALINE HCL 25 MG TABLET PO SCH (15:23)
[2021-12-08] MEDS ORDERED: diphenhydrAMINE 25MG CAP PO ONE (20:00)
[2021-12-08] MEDS: **NOTE PATIENT COMMENT** MISC XX SCH (21:00)
[2021-12-08] MEDS ORDERED: methocarbamoL 750 MG TAB PO ONE (21:55)
[2021-12-08 22:00] VITALS: BP 107/72
[2021-12-08] MEDS ORDERED: ONDANSETRON 4MG ORAL DISINTEGRATING TAB PO PRN (23:40)
[2021-12-09 05:35] VITALS: BP 96/60
[2021-12-09 06:45] LABS: BASO % 0.4 % (0.0-1.0); EOS % 0.9 % (0.0-3.0); HEMATOCRIT 34.2 % (36.0-47.0); HEMOGLOBIN 10.6 g/dl (12.0-15.5); LYMPH # 0.1 10^3/uL (1.5-5.0); LYMPH % 1.8 % (24.0-44.0); MEAN CORPUSCULAR HEMOGLOBIN 27.3 pg (27.0-33.0); MEAN CORPUSCULAR VOLUME 88.1 fl (80.0-96.0); MONO # 0.2 10^3/uL (0.0-0.8); MONO % 3.6 % (2.0-8.0); NEUTROPHILS # 4.1 10^3/uL (1.5-8.5); NEUTROPHILS % 92.2 % (36.0-66.0); PLATELET COUNT, AUTOMATED 477 10^3/uL (150-450); RED BLOOD COUNT 3.88 10^6/uL (4.00-5.40); WHITE BLOOD COUNT 4.5 10^3/uL (4.0-10.0)
[2021-12-09 07:15] LABS: ALBUMIN 2.4 GM/DL (3.2-5.2); ALT/SGPT 25 U/L (12-78); BILIRUBIN,TOTAL 0.3 MG/DL (0.2-1.0); BLOOD UREA NITROGEN 12 MG/DL (7-18); CALCIUM LEVEL 8.6 MG/DL (8.5-10.1); CARBON DIOXIDE LEVEL 27 MEQ/L (21-32); CHLORIDE LEVEL 102 MEQ/L (98-107); CREATININE FOR GFR 0.46 MG/DL (0.55-1.30); GLOMERULAR FILTRATION RATE > 60.0 (>60); GLUCOSE, FASTING 106 MG/DL (70-100); POTASSIUM SERUM 4.4 MEQ/L (3.5-5.1); SODIUM LEVEL 136 MEQ/L (136-145); TOTAL PROTEIN 6.3 GM/DL (6.4-8.2)
[2021-12-09] MEDS: ADDERALL 5 MG TAB PO SCH ×3 (07:56→15:00)
[2021-12-09] MEDS: NORCO, ANEXSIA 5/325MG TABLET (HYDROcodone/ACETAMINOPHEN) PO PRN ×2 (07:57→14:45)
[2021-12-09] MEDS: DOCUSATE SODIUM 100MG CAPSULE PO SCH (08:29)
[2021-12-09] MEDS: ENOXAPARIN 40MG/0.4ML SYRINGE (J1650 PER 10MG) SC SCH (08:30)
[2021-12-09] MEDS: LIDOCAINE 5% (LIDODERM) PATCH TD SCH (08:30)
[2021-12-09] MEDS: SENNA 8.6 MG TAB (SENOKOT) PO SCH (08:30)
[2021-12-09] MEDS: MIRALAX *UNIT DOSE* 17GM PACKET PO SCH (08:30)
[2021-12-09] MEDS: oxyCODONE 20 MG CR TAB PO SCH (09:00)
[2021-12-09] MEDS ORDERED: MORPHINE 30 MG TAB **MSIR PO PRN (11:40)
[2021-12-09] MEDS ORDERED: PILL CUTTER 1 EACH XX PRN (12:00)
[2021-12-09] MEDS: buPROPion 75 MG TAB PO SCH (12:00)
[2021-12-09] MEDS: SERTRALINE HCL 25 MG TABLET PO SCH (12:41)
[2021-12-09] MEDS ORDERED: MORP10SO2 PO (14:23)
[2021-12-09] MEDS ORDERED: MIRA1POW3 PO (14:23)
[2021-12-09] MEDS ORDERED: COLA100C5 PO (14:23)
[2021-12-09] MEDS ORDERED: TIZA2CAP PO (14:23)
[2021-12-09] MEDS ORDERED: DEXA4TA PO (14:23)
[2021-12-09] MEDS ORDERED: HYDR-4517 PO (14:23)
[2021-12-09] MEDS ORDERED: SENN18TA PO (14:23)
[2021-12-09] MEDS ORDERED: ONDA-83 PO (14:23)
[2021-12-09] MEDS ORDERED: MORP1SOL4 PO (15:33)
[2021-12-14] MEDS ORDERED: MSIR30TA PO (13:30)
[2021-12-21] MEDS ORDERED: SILV1CRE60 TOP (11:31)
[2021-12-21] MEDS ORDERED: DEXA4TA PO (12:11)
[2021-12-26] MEDS ORDERED: METH-1164 PO (13:29)
== END 2021-12-09 16:00 | disposition home or self-care (01) | DRG 189 ==
LOC: M ED 21:26 → M ED INP 12-03 10:02 → ENRESERV 12-03 12:11 → M MSPAV 12-03 15:45
PROVIDERS: ADMIT Family Medicine; ATTEND Internal Medicine
PROC: 0W993ZZ Drainage of Right Pleural Cavity, Percutaneous Approach (ICD-10-PCS; principal; 2021-12-05 11:30)
DX: J96.01 Acute respiratory failure with hypoxia (principal); J91.0 Malignant pleural effusion; M62.82 Rhabdomyolysis; C79.51 Secondary malignant neoplasm of bone; C79.2 Secondary malignant neoplasm of skin; G89.3 Neoplasm related pain (acute) (chronic); F41.1 Generalized anxiety disorder; F41.9 Anxiety disorder, unspecified; R00.0 Tachycardia, unspecified; F90.9 Attention-deficit hyperactivity disorder, unspecified type; R11.0 Nausea; C50.919 Malignant neoplasm of unspecified site of unspecified female breast; G47.00 Insomnia, unspecified; Z90.13 Acquired absence of bilateral breasts and nipples; Z79.891 Long term (current) use of opiate analgesic; Z79.899 Other long term (current) drug therapy; Z91.041 Radiographic dye allergy status; Z88.0 Allergy status to penicillin

== ENCOUNTER → 2021-12-12 | Outpatient (CLI) | payer OTHER ==
[~2021-12-12] MED LIST changes: +COLA100C5 PO; +LIDOCAINE 1% MDV 20ML VIAL As Ordered ONE; +MIRA1POW3 PO; +MORP10SO2 PO; +MORP1SOL4 PO; +SENN18TA PO; +SODIUM BICARBONATE 8.4% INJ 50MEQ 50 ML VIAL As Ordered ONE; +TIZA2CAP PO
[2021-12-12 11:30] VITALS: BP 106/55
== END ==
LOC: M IRPRO 08:24
PROVIDERS: ATTEND Nurse Practitioner Family
DX: C50.919 Malignant neoplasm of unspecified site of unspecified female breast (principal); J91.0 Malignant pleural effusion

== ENCOUNTER 2021-12-15 15:01 | Outpatient (RCR) | payer OTHER ==
[~2021-12-15 15:01] MED LIST changes: -LIDOCAINE 1% MDV 20ML VIAL As Ordered ONE; +MSIR30TA; -SODIUM BICARBONATE 8.4% INJ 50MEQ 50 ML VIAL As Ordered ONE
[2021-12-15] MEDS ORDERED: DEXA4TA PO (15:56)
[2021-12-21] MEDS ORDERED: SILV1CRE60 TOP (11:31)
[2021-12-21] MEDS ORDERED: DEXA4TA PO (12:11)
== END 2021-12-20 ==
LOC: M ONCR 15:01
PROVIDERS: ATTEND General Practice
DX: C79.51 Secondary malignant neoplasm of bone (principal); C79.2 Secondary malignant neoplasm of skin

== ENCOUNTER → 2021-12-19 | Outpatient (CLI) | payer OTHER | LOC: M RAD 08:30 | PROVIDERS: ATTEND Nurse Practitioner | DX: M79.89 Other specified soft tissue disorders (principal) ==

== ENCOUNTER → 2021-12-19 | Outpatient (CLI) | payer OTHER ==
[~2021-12-19] MED LIST changes: +LIDOCAINE 1% MDV 20ML VIAL As Ordered ONE; +SILV1CRE60 TOP; +SODIUM BICARBONATE 8.4% INJ 50MEQ 50 ML VIAL As Ordered ONE
[2021-12-19 11:15] VITALS: BP 89/56
== END ==
LOC: M IRPRO 08:26
PROVIDERS: ATTEND Nurse Practitioner Family
DX: C50.919 Malignant neoplasm of unspecified site of unspecified female breast (principal); J91.0 Malignant pleural effusion

== ENCOUNTER → 2021-12-21 | Outpatient (CLI) | payer OTHER ==
[~2021-12-21] MED LIST changes: -LIDOCAINE 1% MDV 20ML VIAL As Ordered ONE
[2021-12-21 17:15] VITALS: BP 111/72
== END ==
LOC: M IRPRO 15:09
PROVIDERS: ATTEND Nurse Practitioner Family
DX: C50.919 Malignant neoplasm of unspecified site of unspecified female breast (principal); J91.0 Malignant pleural effusion

== ENCOUNTER → 2021-12-26 | Outpatient (CLI) | payer OTHER ==
[~2021-12-26] MED LIST changes: +LIDOCAINE 1% MDV 20ML VIAL As Ordered ONE; +METH-1164 PO; -MSIR30TA; +MSIR30TA PO; +TRAN1DIS4 TOP
[2021-12-26 15:45] VITALS: BP 100/61
== END ==
LOC: M IRPRO 13:09
PROVIDERS: ATTEND Nurse Practitioner Family
DX: C50.919 Malignant neoplasm of unspecified site of unspecified female breast (principal); J91.0 Malignant pleural effusion

== ENCOUNTER → 2021-12-26 | Outpatient (CLI) | payer OTHER ==
[~2021-12-26] MED LIST changes: -LIDOCAINE 1% MDV 20ML VIAL As Ordered ONE; +MSIR30TA; -MSIR30TA PO; -SODIUM BICARBONATE 8.4% INJ 50MEQ 50 ML VIAL As Ordered ONE; -TRAN1DIS4 TOP
== END ==
LOC: M RAD 13:08
PROVIDERS: ATTEND Nurse Practitioner
DX: C50.919 Malignant neoplasm of unspecified site of unspecified female breast (principal)

== ENCOUNTER 2021-12-31 08:04 | Inpatient (IN) | payer OTHER ==
[~2021-12-31] VITALS: Ht 165.1 cm; Wt 64.8 kg
[~2021-12-31 08:04] MED LIST changes: -MSIR30TA; +MSIR30TA PO
[2021-12-31] MEDS ORDERED: TRAN1DIS4 TOP (08:18)
[2021-12-31] MEDS ORDERED: SODIUM CHLORIDE 0.9% INJ 10 ML SYR IV PRN (08:50)
[2021-12-31] MEDS ORDERED: FUROSEMIDE 20MG/2ML VIAL (J1940) IV SCH (09:00)
[2021-12-31 09:41] LABS: BASO % 0.7 % (0.0-1.0); EOS % 0.7 % (0.0-3.0); HEMATOCRIT 30.5 % (36.0-47.0); HEMOGLOBIN 9.6 g/dl (12.0-15.5); LYMPH # 0.2 10^3/uL (1.5-5.0); MEAN CORPUSCULAR HEMOGLOBIN 28.4 pg (27.0-33.0); MEAN CORPUSCULAR HGB CONC 31.5 g/dl (32.0-36.5); MEAN CORPUSCULAR VOLUME 90.2 fl (80.0-96.0); MONO # 0.2 10^3/uL (0.0-0.8); NEUTROPHILS # 2.3 10^3/uL (1.5-8.5); NEUTROPHILS % 83.9 % (36.0-66.0); PLATELET COUNT, AUTOMATED 326 10^3/uL (150-450); RED BLOOD COUNT 3.38 10^6/uL (4.00-5.40); WHITE BLOOD COUNT 2.7 10^3/uL (4.0-10.0)
[2021-12-31 10:14] LABS: ALT/SGPT 25 U/L (12-78); BILIRUBIN,DIRECT < 0.1 MG/DL (0.0-0.2); BILIRUBIN,TOTAL 0.2 MG/DL (0.2-1.0); BLOOD UREA NITROGEN 16 MG/DL (7-18); CALCIUM LEVEL 8.3 MG/DL (8.5-10.1); CARBON DIOXIDE LEVEL 28 MEQ/L (21-32); CHLORIDE LEVEL 104 MEQ/L (98-107); CREATININE FOR GFR 0.36 MG/DL (0.55-1.30); GLOMERULAR FILTRATION RATE > 60.0 (>60); GLUCOSE, FASTING 104 MG/DL (70-100); POTASSIUM SERUM 3.8 MEQ/L (3.5-5.1); SODIUM LEVEL 137 MEQ/L (136-145); TOTAL PROTEIN 5.1 GM/DL (6.4-8.2)
[2021-12-31 10:14] LABS: RSV AMPLIFICATION NEGATIVE (NEGATIVE)
[2021-12-31 10:23] LABS: INR 0.86; PROTHROMBIN TIME 12.1 SECONDS (12.7-14.5)
[2021-12-31 10:24] LABS: PARTIAL THROMBOPLASTIN TIME 43.6 SECONDS (25.9-37.0)
[2021-12-31] MEDS ORDERED: HOME MED LIST COMPLETE! XX SCH (11:00)
[2021-12-31] MEDS ORDERED: ACETAMINOPHEN TAB 650MG DOSE (2X325MG) PO PRN (11:20)
[2021-12-31] MEDS ORDERED: ONDANSETRON 4MG TAB PO PRN (11:20)
[2021-12-31] MEDS: ADDERALL 5 MG TAB PO SCH ×3 (12:00→14:00)
[2021-12-31] MEDS: SCOPOLAMINE 1MG TRANSDERMAL PATCH TOP SCH (12:03)
[2021-12-31 13:49] VITALS: BP 102/70
[2021-12-31 15:45] VITALS: BP 95/61
[2021-12-31 16:00] VITALS: BP 95/61
[2021-12-31] MEDS ORDERED: MORPHINE 30 MG TAB **MSIR PO ONE (16:55)
[2021-12-31] MEDS: methocarbamoL 500 MG TAB PO PRN (19:43)
[2021-12-31 20:00] VITALS: BP 104/69
[2021-12-31] MEDS: SERTRALINE HCL 25 MG TABLET PO SCH (20:00)
[2021-12-31] MEDS: diphenhydrAMINE 25MG CAP PO PRN (23:17)
[2022-01-01] VITALS (8 sets, daily range): BP systolic 107–117; BP diastolic 65–73
[2022-01-01 06:24] LABS: HEMATOCRIT 30.5 % (36.0-47.0); HEMOGLOBIN 9.4 g/dl (12.0-15.5); MEAN CORPUSCULAR HEMOGLOBIN 27.6 pg (27.0-33.0); MEAN CORPUSCULAR HGB CONC 30.8 g/dl (32.0-36.5); MEAN CORPUSCULAR VOLUME 89.7 fl (80.0-96.0); PLATELET COUNT, AUTOMATED 361 10^3/uL (150-450); WHITE BLOOD COUNT 2.4 10^3/uL (4.0-10.0)
[2022-01-01 07:36] LABS: ALT/SGPT 27 U/L (12-78); BILIRUBIN,TOTAL 0.4 MG/DL (0.2-1.0); BLOOD UREA NITROGEN 13 MG/DL (7-18); CALCIUM LEVEL 8.2 MG/DL (8.5-10.1); CARBON DIOXIDE LEVEL 30 MEQ/L (21-32); CHLORIDE LEVEL 102 MEQ/L (98-107); CREATININE FOR GFR 0.28 MG/DL (0.55-1.30); GLOMERULAR FILTRATION RATE > 60.0 (>60); GLUCOSE, FASTING 87 MG/DL (70-100); SODIUM LEVEL 137 MEQ/L (136-145); TOTAL PROTEIN 4.9 GM/DL (6.4-8.2)
[2022-01-01] MEDS: ADDERALL 5 MG TAB PO SCH ×3 (08:10→14:00)
[2022-01-01] MEDS ORDERED: FUROSEMIDE 40MG/4ML VIAL (J1940) IV SCH (09:00)
[2022-01-01] MEDS ORDERED: FUROSEMIDE 20MG/2ML VIAL (J1940) IV SCH ×2 (09:00→17:00)
[2022-01-01] MEDS ORDERED: ENOXAPARIN 40MG/0.4ML SYRINGE (J1650 PER 10MG) SC SCH (09:00)
[2022-01-01] MEDS ORDERED: fentaNYL 100 MCG/2 ML INJECTION As Ordered ONE ×2 (09:36→15:52)
[2022-01-01] MEDS ORDERED: diphenhydrAMINE 50MG/ML VIAL (J1200) As Ordered ONE (09:36)
[2022-01-01] MEDS ORDERED: LIDOCAINE 1% MDV 20ML VIAL As Ordered ONE ×2 (09:37→15:52)
[2022-01-01] MEDS ORDERED: MIDAZOLAM INJ 2MG/2ML VIAL (J2250 PER 1MG) As Ordered ONE ×2 (09:37→15:52)
[2022-01-01] MEDS ORDERED: ONDANSETRON 4MG 2ML VIAL As Ordered ONE (14:55)
[2022-01-01] MEDS ORDERED: PROMETHAZINE 25MG/ML 1ML VIAL As Ordered ONE (15:42)
[2022-01-01] MEDS ORDERED: SODIUM BICARBONATE 8.4% INJ 50MEQ 50 ML VIAL As Ordered ONE (15:58)
[2022-01-01] MEDS: SERTRALINE HCL 25 MG TABLET PO SCH (20:39)
[2022-01-01] MEDS: diphenhydrAMINE 25MG CAP PO PRN (20:44)
[2022-01-02] VITALS (9 sets, daily range): BP systolic 97–123; BP diastolic 61–79
[2022-01-02 06:04] LABS: HEMATOCRIT 31.4 % (36.0-47.0); HEMOGLOBIN 9.9 g/dl (12.0-15.5); MEAN CORPUSCULAR HEMOGLOBIN 28.3 pg (27.0-33.0); MEAN CORPUSCULAR HGB CONC 31.5 g/dl (32.0-36.5); MEAN CORPUSCULAR VOLUME 89.7 fl (80.0-96.0); PLATELET COUNT, AUTOMATED 418 10^3/uL (150-450); WHITE BLOOD COUNT 2.4 10^3/uL (4.0-10.0)
[2022-01-02 06:43] LABS: ALBUMIN 2.1 GM/DL (3.2-5.2); ALT/SGPT 26 U/L (12-78); BILIRUBIN,TOTAL 0.5 MG/DL (0.2-1.0); BLOOD UREA NITROGEN 12 MG/DL (7-18); CALCIUM LEVEL 8.4 MG/DL (8.5-10.1); CARBON DIOXIDE LEVEL 30 MEQ/L (21-32); CHLORIDE LEVEL 100 MEQ/L (98-107); CREATININE FOR GFR 0.32 MG/DL (0.55-1.30); GLOMERULAR FILTRATION RATE > 60.0 (>60); GLUCOSE, FASTING 83 MG/DL (70-100); SODIUM LEVEL 136 MEQ/L (136-145); TOTAL PROTEIN 5.1 GM/DL (6.4-8.2)
[2022-01-02] MEDS: ADDERALL 5 MG TAB PO SCH ×4 (08:00→15:15)
[2022-01-02] MEDS: MORPHINE 30 MG TAB **MSIR PO PRN ×3 (08:58→21:51)
[2022-01-02] MEDS ORDERED: LIDOCAINE 1% MDV 20ML VIAL As Ordered ONE (13:13)
[2022-01-02] MEDS ORDERED: SODIUM BICARBONATE 8.4% INJ 50MEQ 50 ML VIAL As Ordered ONE (13:13)
[2022-01-02] MEDS ORDERED: MORPHINE 2 MG/ML 1ML VIAL IV ONE (16:55)
[2022-01-02] MEDS: diphenhydrAMINE 25MG CAP PO PRN (20:34)
[2022-01-02] MEDS: HEPARIN SOD (PORCINE) 5000UNITS/ML 1ML VIAL/SYRINGE SQ SCH (20:34)
[2022-01-02] MEDS: SERTRALINE HCL 25 MG TABLET PO SCH (20:34)
[2022-01-03] VITALS (11 sets, daily range): BP systolic 92–110; BP diastolic 56–67
[2022-01-03] MEDS: MORPHINE 30 MG TAB **MSIR PO PRN ×3 (03:44→20:38)
[2022-01-03 05:12] LABS: HEMATOCRIT 30.6 % (36.0-47.0); HEMOGLOBIN 9.7 g/dl (12.0-15.5); MEAN CORPUSCULAR HEMOGLOBIN 28.2 pg (27.0-33.0); MEAN CORPUSCULAR HGB CONC 31.7 g/dl (32.0-36.5); PLATELET COUNT, AUTOMATED 389 10^3/uL (150-450); RED BLOOD COUNT 3.44 10^6/uL (4.00-5.40); WHITE BLOOD COUNT 2.2 10^3/uL (4.0-10.0)
[2022-01-03 05:35] LABS: ALBUMIN 1.8 GM/DL (3.2-5.2); ALT/SGPT 22 U/L (12-78); BILIRUBIN,TOTAL 0.3 MG/DL (0.2-1.0); BLOOD UREA NITROGEN 16 MG/DL (7-18); CALCIUM LEVEL 8.3 MG/DL (8.5-10.1); CARBON DIOXIDE LEVEL 31 MEQ/L (21-32); CHLORIDE LEVEL 101 MEQ/L (98-107); CREATININE FOR GFR 0.37 MG/DL (0.55-1.30); GLOMERULAR FILTRATION RATE > 60.0 (>60); GLUCOSE, FASTING 102 MG/DL (70-100); MAGNESIUM LEVEL 1.9 MG/DL (1.8-2.4); POTASSIUM SERUM 3.9 MEQ/L (3.5-5.1); SODIUM LEVEL 135 MEQ/L (136-145); TOTAL PROTEIN 4.7 GM/DL (6.4-8.2)
[2022-01-03] MEDS: ADDERALL 5 MG TAB PO SCH ×3 (08:00→13:47)
[2022-01-03] MEDS: SODIUM CHLORIDE 0.9% INJ 10 ML SYR IV SCH (08:44)
[2022-01-03] MEDS ORDERED: LIDOCAINE 1% MDV 20ML VIAL As Ordered ONE (09:12)
[2022-01-03] MEDS ORDERED: SODIUM BICARBONATE 8.4% INJ 50MEQ 50 ML VIAL As Ordered ONE (09:12)
[2022-01-03] MEDS: HEPARIN SOD (PORCINE) 5000UNITS/ML 1ML VIAL/SYRINGE SQ SCH ×2 (10:12→20:18)
[2022-01-03] MEDS: SCOPOLAMINE 1MG TRANSDERMAL PATCH TOP SCH (13:46)
[2022-01-03] MEDS ORDERED: FUROSEMIDE 20MG/2ML VIAL (J1940) IV ONE (16:55)
[2022-01-03] MEDS: SERTRALINE HCL 25 MG TABLET PO SCH (20:16)
[2022-01-03] MEDS: diphenhydrAMINE 25MG CAP PO PRN (21:13)
[2022-01-04] VITALS (29 sets, daily range): BP systolic 91–106; BP diastolic 55–67; O2SAT 94–100
[2022-01-04] MEDS: methocarbamoL 500 MG TAB PO PRN ×3 (02:10→20:14)
[2022-01-04 05:38] LABS: HEMATOCRIT 27.2 % (36.0-47.0); HEMOGLOBIN 8.8 g/dl (12.0-15.5); MEAN CORPUSCULAR HEMOGLOBIN 28.6 pg (27.0-33.0); MEAN CORPUSCULAR HGB CONC 32.4 g/dl (32.0-36.5); MEAN CORPUSCULAR VOLUME 88.3 fl (80.0-96.0); PLATELET COUNT, AUTOMATED 346 10^3/uL (150-450); RED BLOOD COUNT 3.08 10^6/uL (4.00-5.40); WHITE BLOOD COUNT 2.5 10^3/uL (4.0-10.0)
[2022-01-04 06:24] LABS: BLOOD UREA NITROGEN 16 MG/DL (7-18); CARBON DIOXIDE LEVEL 33 MEQ/L (21-32); CHLORIDE LEVEL 99 MEQ/L (98-107); CREATININE FOR GFR 0.45 MG/DL (0.55-1.30); GLOMERULAR FILTRATION RATE > 60.0 (>60); GLUCOSE, FASTING 108 MG/DL (70-100); POTASSIUM SERUM 3.7 MEQ/L (3.5-5.1); SODIUM LEVEL 134 MEQ/L (136-145)
[2022-01-04 06:25] LABS: ALBUMIN 1.9 GM/DL (3.2-5.2); ALT/SGPT 19 U/L (12-78); BILIRUBIN,TOTAL 0.2 MG/DL (0.2-1.0); CALCIUM LEVEL 8.1 MG/DL (8.5-10.1); MAGNESIUM LEVEL 1.9 MG/DL (1.8-2.4); TOTAL PROTEIN 4.6 GM/DL (6.4-8.2)
[2022-01-04] MEDS: ADDERALL 5 MG TAB PO SCH ×3 (08:00→14:00)
[2022-01-04] MEDS: HEPARIN SOD (PORCINE) 5000UNITS/ML 1ML VIAL/SYRINGE SQ SCH ×3 (09:05→20:19)
[2022-01-04] MEDS: FUROSEMIDE 40MG/4ML VIAL (J1940) IV SCH ×2 (09:05→22:02)
[2022-01-04] MEDS: SODIUM CHLORIDE 0.9% INJ 10 ML SYR IV SCH (09:06)
[2022-01-04] MEDS: MORPHINE 30 MG TAB **MSIR PO PRN ×2 (10:56→18:54)
[2022-01-04] MEDS ORDERED: MORPHINE 2 MG/ML 1ML VIAL IV ONE (13:00)
[2022-01-04] MEDS ORDERED: HYDROMORPHONE HCL 0.5 MG/ 0.5 ML SYRINGE (J1170 PER 1) IV ONE (15:15)
[2022-01-04] MEDS ORDERED: POTASSIUM CHLORIDE 10MEQ SR TABLET PO ONE (18:40)
[2022-01-04] MEDS: diphenhydrAMINE 25MG CAP PO PRN (20:13)
[2022-01-04] MEDS: SERTRALINE HCL 25 MG TABLET PO SCH (20:14)
[2022-01-05] VITALS (12 sets, daily range): BP systolic 93–109; BP diastolic 56–67
[2022-01-05] MEDS ORDERED: MORPHINE 2 MG/ML 1ML VIAL IV ONE (01:15)
[2022-01-05] MEDS ORDERED: ONDANSETRON 4MG 2ML VIAL IV ONE (01:45)
[2022-01-05 06:46] LABS: HEMATOCRIT 25.9 % (36.0-47.0); HEMOGLOBIN 8.3 g/dl (12.0-15.5); MEAN CORPUSCULAR VOLUME 87.5 fl (80.0-96.0); PLATELET COUNT, AUTOMATED 376 10^3/uL (150-450); RED BLOOD COUNT 2.96 10^6/uL (4.00-5.40); WHITE BLOOD COUNT 2.5 10^3/uL (4.0-10.0)
[2022-01-05 07:01] LABS: ALBUMIN 2.3 GM/DL (3.2-5.2); ALT/SGPT 21 U/L (12-78); BILIRUBIN,TOTAL 0.3 MG/DL (0.2-1.0); BLOOD UREA NITROGEN 12 MG/DL (7-18); CARBON DIOXIDE LEVEL 32 MEQ/L (21-32); CHLORIDE LEVEL 98 MEQ/L (98-107); CREATININE FOR GFR 0.38 MG/DL (0.55-1.30); GLOMERULAR FILTRATION RATE > 60.0 (>60); GLUCOSE, FASTING 96 MG/DL (70-100); MAGNESIUM LEVEL 1.9 MG/DL (1.8-2.4); POTASSIUM SERUM 3.4 MEQ/L (3.5-5.1); SODIUM LEVEL 134 MEQ/L (136-145); TOTAL PROTEIN 4.7 GM/DL (6.4-8.2)
[2022-01-05] MEDS ORDERED: POTASSIUM CHLORIDE 10MEQ SR TABLET PO ONE (07:45)
[2022-01-05] MEDS: ADDERALL 5 MG TAB PO SCH ×3 (07:53→14:00)
[2022-01-05] MEDS: FUROSEMIDE 40MG/4ML VIAL (J1940) IV SCH ×2 (08:12→18:23)
[2022-01-05] MEDS: SODIUM CHLORIDE 0.9% INJ 10 ML SYR IV SCH (08:12)
[2022-01-05] MEDS: HEPARIN SOD (PORCINE) 5000UNITS/ML 1ML VIAL/SYRINGE SQ SCH ×3 (08:12→19:52)
[2022-01-05] MEDS: MORPHINE 30 MG TAB **MSIR PO PRN ×2 (09:32→22:33)
[2022-01-05] MEDS ORDERED: MORPHINE 4 MG/ML 1ML VIAL/SYRINGE IV ONE (12:25)
[2022-01-05] MEDS ORDERED: diphenhydrAMINE 50 MG IV IV ONE (14:00)
[2022-01-05] MEDS ORDERED: FAMOTIDINE 20 MG IVP IV ONE (14:00)
[2022-01-05] MEDS ORDERED: dexameTHASONE 10 MG IV IV ONE (14:00)
[2022-01-05] MEDS ORDERED: FOSAPREPITANT PERIPHERAL LINE 30 MIN INFUSION IV ONE ×2 (14:00)
[2022-01-05] MEDS: SPIRONOLACTONE 12.5MG PER 1/2 TABLET PO SCH ×2 (14:00→17:29)
[2022-01-05] MEDS ORDERED: PALONOSETRON 250 MCG IV IV ONE (14:00)
[2022-01-05] MEDS ORDERED: [UNRECOGNIZED DRUG - OTHER] IV ONE (15:00)
[2022-01-05] MEDS ORDERED: PACLITAXEL IV ONE (15:00)
[2022-01-05] MEDS: POTASSIUM CHLORIDE 10MEQ SR TABLET PO SCH ×2 (17:28→19:52)
[2022-01-05] MEDS: methocarbamoL 500 MG TAB PO PRN (18:24)
[2022-01-05] MEDS ORDERED: diphenhydrAMINE 50MG/ML VIAL (J1200) IV ONE (20:00)
[2022-01-05] MEDS: MORPHINE 4 MG/ML 1ML VIAL/SYRINGE IV PRN (20:08)
[2022-01-05] MEDS: SERTRALINE HCL 25 MG TABLET PO SCH (20:08)
[2022-01-06] VITALS (25 sets, daily range): BP systolic 92–105; BP diastolic 60–67; O2SAT 94–100
[2022-01-06 06:37] LABS: HEMATOCRIT 26.2 % (36.0-47.0); HEMOGLOBIN 8.6 g/dl (12.0-15.5); MEAN CORPUSCULAR HEMOGLOBIN 28.4 pg (27.0-33.0); MEAN CORPUSCULAR HGB CONC 32.8 g/dl (32.0-36.5); MEAN CORPUSCULAR VOLUME 86.5 fl (80.0-96.0); PLATELET COUNT, AUTOMATED 410 10^3/uL (150-450); RED BLOOD COUNT 3.03 10^6/uL (4.00-5.40); WHITE BLOOD COUNT 2.1 10^3/uL (4.0-10.0)
[2022-01-06] MEDS: ADDERALL 5 MG TAB PO SCH ×3 (08:00→14:00)
[2022-01-06] MEDS: SODIUM CHLORIDE 0.9% INJ 10 ML SYR IV SCH (08:25)
[2022-01-06] MEDS: HEPARIN SOD (PORCINE) 5000UNITS/ML 1ML VIAL/SYRINGE SQ SCH ×2 (08:26→20:58)
[2022-01-06] MEDS: POTASSIUM CHLORIDE 10MEQ SR TABLET PO SCH ×3 (08:26→20:57)
[2022-01-06] MEDS: SPIRONOLACTONE 12.5MG PER 1/2 TABLET PO SCH (08:26)
[2022-01-06] MEDS: MORPHINE 30 MG TAB **MSIR PO PRN ×2 (08:28→16:26)
[2022-01-06 08:37] LABS: ALBUMIN 2.7 GM/DL (3.2-5.2); ALT/SGPT 22 U/L (12-78); BILIRUBIN,TOTAL 0.3 MG/DL (0.2-1.0); BLOOD UREA NITROGEN 12 MG/DL (7-18); CALCIUM LEVEL 8.2 MG/DL (8.5-10.1); CARBON DIOXIDE LEVEL 31 MEQ/L (21-32); CHLORIDE LEVEL 100 MEQ/L (98-107); CREATININE FOR GFR 0.32 MG/DL (0.55-1.30); GLOMERULAR FILTRATION RATE > 60.0 (>60); GLUCOSE, FASTING 122 MG/DL (70-100); MAGNESIUM LEVEL 2.1 MG/DL (1.8-2.4); POTASSIUM SERUM 4.3 MEQ/L (3.5-5.1); SODIUM LEVEL 133 MEQ/L (136-145); TOTAL PROTEIN 5.4 GM/DL (6.4-8.2)
[2022-01-06] MEDS: ONDANSETRON 4MG 2ML VIAL IV PRN (10:48)
[2022-01-06] MEDS: FUROSEMIDE 40MG/4ML VIAL (J1940) IV SCH ×2 (10:49→18:38)
[2022-01-06] MEDS: SCOPOLAMINE 1MG TRANSDERMAL PATCH TOP SCH (12:50)
[2022-01-06] MEDS: SPIRONOLACTONE 50 MG TAB PO SCH (16:23)
[2022-01-06] MEDS: diphenhydrAMINE 50MG CAP PO PRN (20:57)
[2022-01-06] MEDS: SERTRALINE HCL 25 MG TABLET PO SCH (20:57)
[2022-01-06] MEDS: MORPHINE 4 MG/ML 1ML VIAL/SYRINGE IV PRN ×2 (20:58→23:56)
[2022-01-07] VITALS (24 sets, daily range): BP systolic 91–102; BP diastolic 52–64; O2SAT 93–99
[2022-01-07] MEDS: MORPHINE 30 MG TAB **MSIR PO PRN ×3 (02:16→21:14)
[2022-01-07 06:20] LABS: HEMATOCRIT 25.9 % (36.0-47.0); HEMOGLOBIN 8.1 g/dl (12.0-15.5); MEAN CORPUSCULAR HEMOGLOBIN 28.1 pg (27.0-33.0); MEAN CORPUSCULAR HGB CONC 31.3 g/dl (32.0-36.5); MEAN CORPUSCULAR VOLUME 89.9 fl (80.0-96.0); PLATELET COUNT, AUTOMATED 377 10^3/uL (150-450); RED BLOOD COUNT 2.88 10^6/uL (4.00-5.40); WHITE BLOOD COUNT 3.2 10^3/uL (4.0-10.0)
[2022-01-07 07:04] LABS: ALBUMIN 2.8 GM/DL (3.2-5.2); ALT/SGPT 25 U/L (12-78); BILIRUBIN,TOTAL 0.3 MG/DL (0.2-1.0); BLOOD UREA NITROGEN 14 MG/DL (7-18); CALCIUM LEVEL 8.3 MG/DL (8.5-10.1); CARBON DIOXIDE LEVEL 29 MEQ/L (21-32); CHLORIDE LEVEL 102 MEQ/L (98-107); CREATININE FOR GFR 0.42 MG/DL (0.55-1.30); GLOMERULAR FILTRATION RATE > 60.0 (>60); GLUCOSE, FASTING 85 MG/DL (70-100); MAGNESIUM LEVEL 2.1 MG/DL (1.8-2.4); POTASSIUM SERUM 4.5 MEQ/L (3.5-5.1); SODIUM LEVEL 134 MEQ/L (136-145); TOTAL PROTEIN 5.4 GM/DL (6.4-8.2)
[2022-01-07] MEDS: ADDERALL 5 MG TAB PO SCH ×3 (08:00→14:00)
[2022-01-07] MEDS: SPIRONOLACTONE 50 MG TAB PO SCH ×2 (08:14→17:03)
[2022-01-07] MEDS: MORPHINE 4 MG/ML 1ML VIAL/SYRINGE IV PRN (08:14)
[2022-01-07] MEDS: POTASSIUM CHLORIDE 10MEQ SR TABLET PO SCH (08:15)
[2022-01-07] MEDS: SODIUM CHLORIDE 0.9% INJ 10 ML SYR IV SCH (08:15)
[2022-01-07] MEDS: HEPARIN SOD (PORCINE) 5000UNITS/ML 1ML VIAL/SYRINGE SQ SCH ×2 (08:28→21:15)
[2022-01-07] MEDS: FUROSEMIDE 40MG/4ML VIAL (J1940) IV SCH ×2 (10:42→20:01)
[2022-01-07] MEDS: methocarbamoL 500 MG TAB PO PRN ×2 (10:42→21:14)
[2022-01-07] MEDS: HYDROMORPHONE HCL 0.5 MG/ 0.5 ML SYRINGE (J1170 PER 1) IV PRN ×2 (15:43→21:42)
[2022-01-07] MEDS: SERTRALINE HCL 25 MG TABLET PO SCH (21:14)
[2022-01-07] MEDS: diphenhydrAMINE 50MG CAP PO PRN (21:14)
[2022-01-07] MEDS: ONDANSETRON 4MG 2ML VIAL IV PRN (21:15)
[2022-01-08] VITALS (21 sets, daily range): BP systolic 90–108; BP diastolic 55–74; O2SAT 90–99
[2022-01-08] MEDS: HYDROMORPHONE HCL 0.5 MG/ 0.5 ML SYRINGE (J1170 PER 1) IV PRN ×3 (04:09→20:51)
[2022-01-08] MEDS: SODIUM CHLORIDE 0.9% INJ 10 ML SYR IV PRN ×2 (06:42→18:35)
[2022-01-08 07:00] LABS: HEMATOCRIT 26.8 % (36.0-47.0); HEMOGLOBIN 8.3 g/dl (12.0-15.5); MEAN CORPUSCULAR HEMOGLOBIN 27.9 pg (27.0-33.0); MEAN CORPUSCULAR VOLUME 89.9 fl (80.0-96.0); PLATELET COUNT, AUTOMATED 390 10^3/uL (150-450); RED BLOOD COUNT 2.98 10^6/uL (4.00-5.40); WHITE BLOOD COUNT 2.6 10^3/uL (4.0-10.0)
[2022-01-08 07:33] LABS: ALT/SGPT 29 U/L (12-78); BILIRUBIN,TOTAL 0.4 MG/DL (0.2-1.0); BLOOD UREA NITROGEN 15 MG/DL (7-18); CALCIUM LEVEL 8.7 MG/DL (8.5-10.1); CARBON DIOXIDE LEVEL 30 MEQ/L (21-32); CHLORIDE LEVEL 100 MEQ/L (98-107); CREATININE FOR GFR 0.37 MG/DL (0.55-1.30); GLOMERULAR FILTRATION RATE > 60.0 (>60); GLUCOSE, FASTING 98 MG/DL (70-100); MAGNESIUM LEVEL 2.2 MG/DL (1.8-2.4); POTASSIUM SERUM 4.6 MEQ/L (3.5-5.1); SODIUM LEVEL 135 MEQ/L (136-145); TOTAL PROTEIN 5.3 GM/DL (6.4-8.2)
[2022-01-08] MEDS: MORPHINE 30 MG TAB **MSIR PO PRN ×2 (08:49→17:18)
[2022-01-08] MEDS: SODIUM CHLORIDE 0.9% INJ 10 ML SYR IV SCH (08:58)
[2022-01-08] MEDS: HEPARIN SOD (PORCINE) 5000UNITS/ML 1ML VIAL/SYRINGE SQ SCH ×2 (09:00→20:49)
[2022-01-08] MEDS: ADDERALL 5 MG TAB PO SCH ×3 (09:03→14:00)
[2022-01-08] MEDS: SPIRONOLACTONE 50 MG TAB PO SCH (09:03)
[2022-01-08] MEDS: ONDANSETRON 4MG 2ML VIAL IV PRN (11:05)
[2022-01-08] MEDS: FUROSEMIDE 40MG/4ML VIAL (J1940) IV SCH ×2 (11:43→18:34)
[2022-01-08] MEDS: TORSEMIDE 20 MG TAB PO SCH (11:51)
[2022-01-08] MEDS: SERTRALINE HCL 25 MG TABLET PO SCH (20:49)
[2022-01-08] MEDS: methocarbamoL 500 MG TAB PO PRN (20:51)
[2022-01-08] MEDS: diphenhydrAMINE 50MG CAP PO PRN (20:51)
[2022-01-09] VITALS (14 sets, daily range): BP systolic 90–100; BP diastolic 60–64; O2SAT 92–99
[2022-01-09] MEDS: HYDROMORPHONE HCL 0.5 MG/ 0.5 ML SYRINGE (J1170 PER 1) IV PRN (03:36)
[2022-01-09] MEDS: SODIUM CHLORIDE 0.9% INJ 10 ML SYR IV PRN (05:17)
[2022-01-09 05:30] LABS: HEMATOCRIT 26.8 % (36.0-47.0); HEMOGLOBIN 8.5 g/dl (12.0-15.5); MEAN CORPUSCULAR HEMOGLOBIN 28.3 pg (27.0-33.0); MEAN CORPUSCULAR HGB CONC 31.7 g/dl (32.0-36.5); MEAN CORPUSCULAR VOLUME 89.3 fl (80.0-96.0); PLATELET COUNT, AUTOMATED 415 10^3/uL (150-450); WHITE BLOOD COUNT 2.5 10^3/uL (4.0-10.0)
[2022-01-09 06:23] LABS: ALBUMIN 3.1 GM/DL (3.2-5.2); ALT/SGPT 33 U/L (12-78); BILIRUBIN,TOTAL 0.4 MG/DL (0.2-1.0); BLOOD UREA NITROGEN 17 MG/DL (7-18); CALCIUM LEVEL 8.7 MG/DL (8.5-10.1); CARBON DIOXIDE LEVEL 31 MEQ/L (21-32); CHLORIDE LEVEL 99 MEQ/L (98-107); GLOMERULAR FILTRATION RATE > 60.0 (>60); GLUCOSE, FASTING 102 MG/DL (70-100); MAGNESIUM LEVEL 2.2 MG/DL (1.8-2.4); POTASSIUM SERUM 4.2 MEQ/L (3.5-5.1); SODIUM LEVEL 134 MEQ/L (136-145); TOTAL PROTEIN 5.7 GM/DL (6.4-8.2)
[2022-01-09] MEDS: ADDERALL 5 MG TAB PO SCH ×3 (08:00→14:00)
[2022-01-09] MEDS: HEPARIN SOD (PORCINE) 5000UNITS/ML 1ML VIAL/SYRINGE SQ SCH (08:54)
[2022-01-09] MEDS: TORSEMIDE 20 MG TAB PO SCH (08:58)
[2022-01-09] MEDS: SODIUM CHLORIDE 0.9% INJ 10 ML SYR IV SCH (08:59)
[2022-01-09] MEDS ORDERED: NYSTATIN 100,000 UNITS/GM TOPICAL PWD 15 GM TOP SCH (09:00)
[2022-01-09] MEDS ORDERED: SPIRONOLACTONE 50 MG TAB PO SCH (09:00)
[2022-01-09] MEDS ORDERED: TORS20TA2 PO (11:24)
[2022-01-09] MEDS ORDERED: ALDA50TA2 PO (11:24)
[2022-01-09] MEDS: MORPHINE 30 MG TAB **MSIR PO PRN (11:48)
[2022-01-09] MEDS: SCOPOLAMINE 1MG TRANSDERMAL PATCH TOP SCH (13:00)
[2022-01-12] MEDS ORDERED: MORP10SO2 (10:47)
[2022-01-12] MEDS ORDERED: PROC10TA5 (10:47)
[2022-01-12] MEDS ORDERED: BENA25CA4 PO (10:47)
[2022-01-12] MEDS ORDERED: POTA10CA32 PO (11:38)
[2022-01-12] MEDS ORDERED: ANAS1TAB2 PO (11:45)
== END 2022-01-09 14:51 | disposition home or self-care (01) | DRG 598 ==
LOC: M ED 08:04 → M ED INP 11:16 → M PCU 11:16 → ENRESERV 12:22 → M PCU 13:41
PROVIDERS: ADMIT Internal Medicine; ATTEND Internal Medicine Nephrology
PROC: 0WH93YZ Insertion of Other Device into Right Pleural Cavity, Percutaneous Approach (ICD-10-PCS; principal; 2022-01-01 09:30)
PROC: 0W993ZZ Drainage of Right Pleural Cavity, Percutaneous Approach (ICD-10-PCS; 2022-01-02)
PROC: 0W9B3ZZ Drainage of Left Pleural Cavity, Percutaneous Approach (ICD-10-PCS; 2022-01-03)
PROC: 30233J1 Transfusion of Nonautologous Serum Albumin into Peripheral Vein, Percutaneous Approach (ICD-10-PCS; 2022-01-03)
PROC: 0W993ZZ Drainage of Right Pleural Cavity, Percutaneous Approach (ICD-10-PCS; 2022-01-05)
DX: C50.919 Malignant neoplasm of unspecified site of unspecified female breast (principal); J96.11 Chronic respiratory failure with hypoxia; J91.0 Malignant pleural effusion; C79.51 Secondary malignant neoplasm of bone; C78.00 Secondary malignant neoplasm of unspecified lung; C77.4 Secondary and unspecified malignant neoplasm of inguinal and lower limb lymph nodes; C79.2 Secondary malignant neoplasm of skin; E46 Unspecified protein-calorie malnutrition; I31.3 Pericardial effusion (noninflammatory); C78.7 Secondary malignant neoplasm of liver and intrahepatic bile duct; C79.89 Secondary malignant neoplasm of other specified sites; Z90.13 Acquired absence of bilateral breasts and nipples; Z92.21 Personal history of antineoplastic chemotherapy; G89.3 Neoplasm related pain (acute) (chronic); D50.9 Iron deficiency anemia, unspecified; Z99.81 Dependence on supplemental oxygen; R00.0 Tachycardia, unspecified; R59.0 Localized enlarged lymph nodes; Z88.0 Allergy status to penicillin; Z91.041 Radiographic dye allergy status; Z79.899 Other long term (current) drug therapy; Z92.3 Personal history of irradiation; E87.6 Hypokalemia; Z53.29 Procedure and treatment not carried out because of patient's decision for other reasons

== ENCOUNTER 2022-01-12 13:15 | Outpatient (RCR) | payer OTHER ==
[~2022-01-12 13:15] MED LIST changes: +ALDA50TA2 PO; +ANAS1TAB2 PO; +BENA25CA4 PO; +MORP10SO2; +POTA10CA32 PO; +PROC10TA5 PO; +TORS20TA2 PO; +TRAN1DIS4 TOP
[2022-01-15] MEDS ORDERED: ANAS1TAB2 PO ×2 (13:25→18:29)
[2022-01-18] MEDS ORDERED: TORS20TA2 PO (11:49)
[2022-01-18] MEDS ORDERED: SPIR-10 PO (11:49)
[2022-01-19] MEDS ORDERED: Wheelchair (09:35)
[2022-01-19] MEDS ORDERED: shower chair (09:52)
== END 2022-01-19 ==
LOC: M ONCR 13:15
PROVIDERS: ATTEND General Practice
DX: C79.51 Secondary malignant neoplasm of bone (principal)

== ENCOUNTER 2022-01-14 14:35 | Inpatient (IN) | payer OTHER ==
[~2022-01-14] VITALS: Ht 165.1 cm; Wt 50.5 kg
[2022-01-14] MEDS ORDERED: ONDANSETRON 4MG 2ML VIAL IV ONE (14:50)
[2022-01-14] MEDS ORDERED: NS 1,000 ML IV ONE (14:50)
[2022-01-14] MEDS ORDERED: NS 250 ML IV ONE (15:00)
[2022-01-14] MEDS ORDERED: MORPHINE 4 MG/ML 1ML VIAL/SYRINGE IV ONE (15:10)
[2022-01-14 15:45] LABS: BASO % 0.5 % (0.0-1.0); HEMOGLOBIN 7.6 g/dl (12.0-15.5); LYMPH # 0.1 10^3/uL (1.5-5.0); LYMPH % 1.8 % (24.0-44.0); MEAN CORPUSCULAR HEMOGLOBIN 28.6 pg (27.0-33.0); MEAN CORPUSCULAR VOLUME 86.5 fl (80.0-96.0); MONO # 0.3 10^3/uL (0.0-0.8); MONO % 8.9 % (2.0-8.0); NEUTROPHILS # 3.4 10^3/uL (1.5-8.5); PLATELET COUNT, AUTOMATED 441 10^3/uL (150-450); RED BLOOD COUNT 2.66 10^6/uL (4.00-5.40); WHITE BLOOD COUNT 3.8 10^3/uL (4.0-10.0)
[2022-01-14 16:49] LABS: ALBUMIN 2.9 GM/DL (3.2-5.2); ALT/SGPT 31 U/L (12-78); AMYLASE 17 U/L (25-115); BILIRUBIN,DIRECT 0.2 MG/DL (0.0-0.2); BILIRUBIN,TOTAL 0.7 MG/DL (0.2-1.0); BLOOD UREA NITROGEN 12 MG/DL (7-18); CALCIUM LEVEL 7.8 MG/DL (8.5-10.1); CARBON DIOXIDE LEVEL 33 MEQ/L (21-32); CHLORIDE LEVEL 87 MEQ/L (98-107); CREATININE FOR GFR 0.37 MG/DL (0.55-1.30); GLOMERULAR FILTRATION RATE > 60.0 (>60); GLUCOSE, FASTING 93 MG/DL (70-100); LIPASE 41 U/L (73-393); POTASSIUM SERUM 2.5 MEQ/L (3.5-5.1); SODIUM LEVEL 127 MEQ/L (136-145); TOTAL PROTEIN 6.5 GM/DL (6.4-8.2)
[2022-01-14] MEDS ORDERED: KCL 10MEQ/100ML SWI (KRUN) 10 MEQ in IV 1 EA IV ONE (16:50)
[2022-01-14] MEDS ORDERED: NS 500 ML IV ONE (16:55)
[2022-01-14 17:28] LABS: FREE T4 1.28 NG/DL (0.76-1.46); MAGNESIUM LEVEL 1.8 MG/DL (1.8-2.4)
[2022-01-14] MEDS ORDERED: ONDANSETRON 4MG 2ML VIAL IV PRN (17:30)
[2022-01-14 17:40] LABS: RSV AMPLIFICATION NEGATIVE (NEGATIVE)
[2022-01-14] MEDS ORDERED: HOME MED LIST COMPLETE! XX SCH (17:50)
[2022-01-14] MEDS ORDERED: NS 1,000 ML IV SCH ×2 (18:15→22:25)
[2022-01-14] MEDS: MAG SULF 1GM/100ML (MAG RUN) 1 GM in IV 1 EA IV SCH ×2 (20:11→21:29)
[2022-01-14] MEDS ORDERED: POTASSIUM CHLORIDE 10MEQ SR TABLET PO ONE (21:00)
[2022-01-14] MEDS: PROCHLORPERAZINE 10MG 2ML VIAL IV PRN (21:28)
[2022-01-14 21:51] LABS: BLOOD UREA NITROGEN 12 MG/DL (7-18); CALCIUM LEVEL 7.8 MG/DL (8.5-10.1); CARBON DIOXIDE LEVEL 33 MEQ/L (21-32); CHLORIDE LEVEL 87 MEQ/L (98-107); CREATININE FOR GFR 0.33 MG/DL (0.55-1.30); GLOMERULAR FILTRATION RATE > 60.0 (>60); GLUCOSE, FASTING 94 MG/DL (70-100); POTASSIUM SERUM 2.7 MEQ/L (3.5-5.1); SODIUM LEVEL 128 MEQ/L (136-145)
[2022-01-14] MEDS ORDERED: POTASSIUM CHLORIDE 10MEQ SR TABLET PO SCH (23:00)
[2022-01-14] MEDS: KCL 10MEQ/100ML SWI (KRUN) 10 MEQ in IV 1 EA IV SCH (23:45)
[2022-01-14] MEDS: HEPARIN SOD (PORCINE) 5000UNITS/ML 1ML VIAL/SYRINGE SQ SCH (23:58)
[2022-01-15] MEDS: KCL 10MEQ/100ML SWI (KRUN) 10 MEQ in IV 1 EA IV SCH ×5 (01:01→07:00)
[2022-01-15] MEDS ORDERED: diphenhydrAMINE 50MG/ML VIAL (J1200) IV PRN (01:10)
[2022-01-15 03:10] LABS: BLOOD UREA NITROGEN 10 MG/DL (7-18); CALCIUM LEVEL 8.2 MG/DL (8.5-10.1); CARBON DIOXIDE LEVEL 33 MEQ/L (21-32); CHLORIDE LEVEL 90 MEQ/L (98-107); GLOMERULAR FILTRATION RATE > 60.0 (>60); GLUCOSE, FASTING 94 MG/DL (70-100); POTASSIUM SERUM 3.2 MEQ/L (3.5-5.1); SODIUM LEVEL 129 MEQ/L (136-145)
[2022-01-15] MEDS: HEPARIN SOD (PORCINE) 5000UNITS/ML 1ML VIAL/SYRINGE SQ SCH (06:07)
[2022-01-15 06:13] LABS: HEMATOCRIT 27.3 % (36.0-47.0); HEMOGLOBIN 8.8 g/dl (12.0-15.5); LYMPH # 0.1 10^3/uL (1.5-5.0); LYMPH % 2.4 % (24.0-44.0); MEAN CORPUSCULAR HEMOGLOBIN 28.1 pg (27.0-33.0); MEAN CORPUSCULAR HGB CONC 32.2 g/dl (32.0-36.5); MEAN CORPUSCULAR VOLUME 87.2 fl (80.0-96.0); MONO # 0.3 10^3/uL (0.0-0.8); MONO % 11.3 % (2.0-8.0); NEUTROPHILS # 2.5 10^3/uL (1.5-8.5); NEUTROPHILS % 85.6 % (36.0-66.0); PLATELET COUNT, AUTOMATED 434 10^3/uL (150-450); RED BLOOD COUNT 3.13 10^6/uL (4.00-5.40); WHITE BLOOD COUNT 2.9 10^3/uL (4.0-10.0)
[2022-01-15 06:44] LABS: BLOOD UREA NITROGEN 10 MG/DL (7-18); CALCIUM LEVEL 8.1 MG/DL (8.5-10.1); CARBON DIOXIDE LEVEL 32 MEQ/L (21-32); CHLORIDE LEVEL 91 MEQ/L (98-107); CREATININE FOR GFR 0.36 MG/DL (0.55-1.30); GLOMERULAR FILTRATION RATE > 60.0 (>60); GLUCOSE, FASTING 89 MG/DL (70-100); MAGNESIUM LEVEL 2.5 MG/DL (1.8-2.4); PHOSPHORUS LEVEL 2.5 MG/DL (2.5-4.9); POTASSIUM SERUM 3.6 MEQ/L (3.5-5.1); SODIUM LEVEL 129 MEQ/L (136-145)
[2022-01-15] MEDS ORDERED: methocarbamoL 500 MG TAB PO PRN (08:25)
[2022-01-15] MEDS ORDERED: MORPHINE 30 MG TAB **MSIR PO PRN (08:25)
[2022-01-15] MEDS ORDERED: SODIUM CHLORIDE 0.9% INJ 10 ML SYR IV SCH (09:00)
[2022-01-15] MEDS ORDERED: MUPIROCIN 2% OINT 22 GM TUBE TOP SCH (09:00)
[2022-01-15] MEDS ORDERED: POTASSIUM CHLORIDE 10MEQ SR TABLET PO ONE (09:00)
[2022-01-15] MEDS ORDERED: SCOPOLAMINE 1MG TRANSDERMAL PATCH TOP SCH (09:00)
[2022-01-15] MEDS: PROCHLORPERAZINE 10MG 2ML VIAL IV PRN (09:06)
[2022-01-15] MEDS ORDERED: K-PHOS ORIGINAL (POT.ACID PHOSPHATE) 500MG TAB PO ONE (11:00)
[2022-01-15] MEDS ORDERED: ADDERALL 5 MG TAB PO SCH (11:00)
[2022-01-15 12:00] VITALS: BP 99/62
[2022-01-15 12:15] LABS: BLOOD UREA NITROGEN 10 MG/DL (7-18); CALCIUM LEVEL 8.4 MG/DL (8.5-10.1); CARBON DIOXIDE LEVEL 32 MEQ/L (21-32); CHLORIDE LEVEL 94 MEQ/L (98-107); CREATININE FOR GFR 0.39 MG/DL (0.55-1.30); GLOMERULAR FILTRATION RATE > 60.0 (>60); GLUCOSE, FASTING 107 MG/DL (70-100); POTASSIUM SERUM 3.6 MEQ/L (3.5-5.1); SODIUM LEVEL 133 MEQ/L (136-145)
[2022-01-15] MEDS ORDERED: ANAS1TAB2 PO ×2 (13:25→18:29)
[2022-01-15] MEDS ORDERED: SODIUM CHLORIDE 0.9% INJ 10 ML SYR IV PRN (14:55)
[2022-01-15] MEDS ORDERED: SERTRALINE HCL 25 MG TABLET PO SCH (21:00)
[2022-01-15] MEDS ORDERED: diphenhydrAMINE 25MG CAP PO SCH (21:00)
== END 2022-01-15 15:12 | disposition home or self-care (01) | DRG 641 ==
LOC: M ED 14:35 → M ED INP 17:29 → ENRESERV 01-15 08:08 → M ICU 01-15 11:17
PROVIDERS: ADMIT Internal Medicine; ATTEND Internal Medicine
DX: E87.1 Hypo-osmolality and hyponatremia (principal); C79.51 Secondary malignant neoplasm of bone; J91.0 Malignant pleural effusion; C77.4 Secondary and unspecified malignant neoplasm of inguinal and lower limb lymph nodes; J96.11 Chronic respiratory failure with hypoxia; R53.1 Weakness; R11.2 Nausea with vomiting, unspecified; C50.919 Malignant neoplasm of unspecified site of unspecified female breast; E87.6 Hypokalemia; D63.0 Anemia in neoplastic disease; D64.81 Anemia due to antineoplastic chemotherapy; D70.1 Agranulocytosis secondary to cancer chemotherapy; R00.0 Tachycardia, unspecified; R60.0 Localized edema; G89.3 Neoplasm related pain (acute) (chronic); Z79.899 Other long term (current) drug therapy; Z88.0 Allergy status to penicillin; Z91.041 Radiographic dye allergy status; T45.1X5A Adverse effect of antineoplastic and immunosuppressive drugs, initial encounter; Z99.81 Dependence on supplemental oxygen

== ENCOUNTER → 2022-01-18 | Outpatient (CLI) | payer OTHER ==
[~2022-01-18] MED LIST changes: +LIDOCAINE 1% MDV 20ML VIAL As Ordered ONE; +MORPHINE 10 MG/ML 1ML VIAL As Ordered ONE; +MORPHINE 10 MG/ML 1ML VIAL IV ONE; +MORPHINE 4 MG/ML 1ML VIAL/SYRINGE IV ONE; +SODIUM BICARBONATE 8.4% INJ 50MEQ 50 ML VIAL As Ordered ONE; +SPIR-10 PO; +Wheelchair; +shower chair
[2022-01-18 15:00] VITALS: BP 83/55
== END ==
LOC: M IRPRO 10:55
PROVIDERS: ATTEND Specialist
DX: C50.919 Malignant neoplasm of unspecified site of unspecified female breast (principal); J91.8 Pleural effusion in other conditions classified elsewhere
CPT/HCPCS: 32555; 71046; 71250; J1642; J2270

== ENCOUNTER → 2022-01-24 | Outpatient (CLI) | payer OTHER ==
[~2022-01-24] MED LIST changes: -LIDOCAINE 1% MDV 20ML VIAL As Ordered ONE; -MORPHINE 10 MG/ML 1ML VIAL As Ordered ONE; -MORPHINE 10 MG/ML 1ML VIAL IV ONE; -MORPHINE 4 MG/ML 1ML VIAL/SYRINGE IV ONE
[2022-01-24 11:15] VITALS: BP 85/55
== END ==
LOC: M IRPRO 10:20
PROVIDERS: ATTEND Nurse Practitioner Family
DX: C50.919 Malignant neoplasm of unspecified site of unspecified female breast (principal); J91.0 Malignant pleural effusion

== ENCOUNTER → 2022-01-29 | Outpatient (CLI) | payer OTHER ==
[2022-01-29 13:15] VITALS: BP 93/62
== END ==
LOC: M IRPRO 09:29
PROVIDERS: ATTEND Nurse Practitioner Family
DX: J90 Pleural effusion, not elsewhere classified (principal)

== ENCOUNTER → 2022-01-30 | Outpatient (CLI) | payer OTHER ==
[~2022-01-30] MED LIST changes: -SODIUM BICARBONATE 8.4% INJ 50MEQ 50 ML VIAL As Ordered ONE
[2022-01-30 12:30] VITALS: BP 88/50
== END ==
LOC: M IRPRO 09:40
PROVIDERS: ATTEND Nurse Practitioner Family
DX: C50.919 Malignant neoplasm of unspecified site of unspecified female breast (principal); J91.0 Malignant pleural effusion